=== PATIENT | male | born 1965 | race Caucasian/White ===

== ENCOUNTER → 2020-01-20 | Outpatient (CLI) | payer BC | END | disposition home or self-care (01) | LOC: VAS 10:43 | PROVIDERS: ATTEND Internal Medicine Cardiovascular Disease | DX: J98.8 Other specified respiratory disorders (principal); M47.819 Spondylosis without myelopathy or radiculopathy, site unspecified | CPT/HCPCS: 71046; 93971 ==

== ENCOUNTER 2020-01-25 12:25 | Day surgery (SDC) | payer BC ==
[2020-01-20 12:45] LABS: BASOPHILS % (AUTO) 0.6 % (0-1); EOSINOPHILS # (AUTO) 0.3 X10'3 (0-0.9); EOSINOPHILS % (AUTO) 3.9 % (0-6); HEMATOCRIT 43.4 % (42.0-52.0); HEMOGLOBIN 14.9 g/dl (14.0-17.9); LYMPHOCYTES # (AUTO) 1.4 X10'3 (1.1-4.8); LYMPHOCYTES % (AUTO) 18.8 % (21-51); MEAN CORPUSCULAR HEMOGLOBIN 28.6 PG (27.0-31.0); MEAN CORPUSCULAR HGB CONC 34.3 g/dL (33.0-36.5); MEAN CORPUSCULAR VOLUME 83.4 FL (78-98); MEAN PLATELET VOLUME 8.4 FL (7.4-10.4); MONOCYTES # (AUTO) 0.4 X10'3 (0-0.9); MONOCYTES % (AUTO) 4.9 % (2-12); NEUTROPHILS # (AUTO) 5.5 X10'3 (1.8-7.7); NEUTROPHILS % (AUTO) 71.8 % (42-75); PLATELET COUNT 266 X10'3 (140-440); RED CELL DISTRIBUTION WIDTH 13.9 % (11.5-14.5); WHITE BLOOD COUNT 7.7 X10'3 (4.5-11.0)
[2020-01-20 12:59] LABS: PARTIAL THROMBOPLASTIN TIME 27 SECONDS (22-32)
[2020-01-20 13:16] LABS: ALANINE AMINOTRANSFERASE 42 U/L (12-78); ALBUMIN 3.7 G/DL (3.4-5.0); ALKALINE PHOSPHATASE 64 IU/L (46-116); ANION GAP 9 (8-16); ASPARTATE AMINO TRANSFERASE 24 U/L (10-37); BILIRUBIN,TOTAL 0.5 MG/DL (0.1-1.0); BLOOD UREA NITROGEN 24 MG/DL (7-18); BUN/CREATININE RATIO 26.1 (5.4-32.0); CALCIUM 9.1 MG/DL (8.5-10.1); CHLORIDE 99 MMOL/L (99-107); CREATININE 0.92 MG/DL (0.60-1.10); GLUCOSE 128 MG/DL (70-104); POTASSIUM 3.8 MMOL/L (3.5-5.1); SODIUM 136 MMOL/L (135-145); TOTAL CARBON DIOXIDE 27.8 MMOL/L (24-32); TOTAL PROTEIN 7.4 G/DL (6.4-8.2); eGFR 86 ML/MIN
[2020-01-25] VITALS (12 sets, daily range): BP systolic 96–131; BP diastolic 74–94
[~2020-01-25] VITALS: Ht 175.3 cm; Wt 116.0 kg
[2020-01-25] MEDS ORDERED: nitroGLYCERIN 0.4mg SUBLingual tab SL PRN (13:00)
[2020-01-25] MEDS ORDERED: LOSA1TAB39 PO (13:01)
[2020-01-25] MEDS ORDERED: CARV-50 PO (13:01)
[2020-01-25] MEDS ORDERED: normal saline 1,000 ML IV SCH (13:05)
[2020-01-25] MEDS ORDERED: LORazepam 0.5 MG tablet PO PRN (13:05)
[2020-01-25] MEDS ORDERED: diphenhydrAMINE 25mg capsule PO PRN (13:05)
[2020-01-25] MEDS ORDERED: midazolam 2 mg/2 ml injection ONE ×2 (13:20→13:45)
[2020-01-25] MEDS ORDERED: fentaNYL/PF 50MCG/1 ML 2ML syringe ONE ×2 (13:20→14:01)
[2020-01-25] MEDS ORDERED: heparin 1,000 UNITS/NS 500ml 500 ML ONE ×2 (13:20→13:21)
[2020-01-25] MEDS ORDERED: iohexol 350MG/ML 100ml bottle IV ONE (13:20)
[2020-01-25] MEDS ORDERED: iohexol 350 MG/ML 50ML vial IV ONE (13:20)
[2020-01-25] MEDS ORDERED: LIDOcaine 1% (10mg/ml)w/preservative injection 20ml MDV ONE (13:21)
[2020-01-25] MEDS ORDERED: HYDROcodone/acetaminophen 10/325mg tab PO PRN (15:40)
[2020-01-25] MEDS ORDERED: HYDROcodone/acetaminophen 5mg/325mg tablet PO PRN (15:40)
== END 2020-01-25 19:58 | disposition home or self-care (01) ==
LOC: SSTAY O 12:25
PROVIDERS: ATTEND Internal Medicine Cardiovascular Disease
DX: I25.119 Atherosclerotic heart disease of native coronary artery with unspecified angina pectoris (principal); I10 Essential (primary) hypertension; E78.5 Hyperlipidemia, unspecified; G47.33 Obstructive sleep apnea (adult) (pediatric); Z79.899 Other long term (current) drug therapy; Z79.82 Long term (current) use of aspirin; Z79.01 Long term (current) use of anticoagulants
CPT/HCPCS: 36415; 80053; 85025; 85610; 85730; 93005; 93460; 99152; 99153; C1760; C1769; J1644; J2001; J2250; J3010; J7030; Q0163; Q9967; A4620; A6449; C1751

== ENCOUNTER 2020-02-15 07:39 | Inpatient (IN) | payer BC ==
[2020-02-15] VITALS (14 sets, daily range): BP systolic 111–159; BP diastolic 62–104
[~2020-02-15] VITALS: Ht 175.3 cm; Wt 113.6 kg
[~2020-02-15 07:39] MED LIST: CARV-50 PO; LOSA1TAB39 PO
[2020-02-15] MEDS ORDERED: NITR0.4T51 SL (07:58)
[2020-02-15] MEDS ORDERED: ASPI-611 PO (07:58)
[2020-02-15] MEDS ORDERED: CLOP75TA15 PO (07:58)
[2020-02-15] MEDS ORDERED: heparin 10,000 units/1 ML INJ ONE (08:00)
[2020-02-15] MEDS ORDERED: papaverine 30 mg/ml 2ml inj. ONE (08:00)
[2020-02-15] MEDS ORDERED: LIDOcaine 1% (10mg/ml)w/preservative injection 20ml MDV ONE (08:53)
[2020-02-15] MEDS ORDERED: proCHLORperazine 10 MG/2 ml inj ONE (08:53)
[2020-02-15] MEDS ORDERED: iohexol 350 MG/ML 50ML vial IV ONE (08:53)
[2020-02-15] MEDS ORDERED: midazolam 2 mg/2 ml injection ONE ×2 (08:53→09:33)
[2020-02-15] MEDS ORDERED: heparin 1,000unit/ml 10ml vial 10 ML ONE (08:53)
[2020-02-15] MEDS ORDERED: iohexol 350 MG/1 ML 200ml bottle ONE (08:53)
[2020-02-15] MEDS ORDERED: fentaNYL/PF 50MCG/1 ML 2ML syringe ONE ×2 (08:53→09:33)
[2020-02-15] MEDS ORDERED: nitroGLYCERIN 0.4mg SUBLingual tab SL PRN ×2 (08:55→11:05)
[2020-02-15] MEDS ORDERED: LORazepam 0.5 MG tablet PO PRN (08:55)
[2020-02-15] MEDS ORDERED: diphenhydrAMINE 25mg capsule PO PRN (08:55)
[2020-02-15] MEDS: normal saline 1,000 ML IV SCH ×2 (08:58→20:07)
[2020-02-15] MEDS ORDERED: ondansetron/PF 4mg/2ml inj IV PRN (11:05)
[2020-02-15] MEDS ORDERED: HYDROcodone/acetaminophen 5mg/325mg tablet PO PRN (11:05)
[2020-02-15] MEDS ORDERED: OXAZEpam 15mg capsule PO PRN (11:05)
[2020-02-15] MEDS ORDERED: HYDROcodone/acetaminophen 10/325mg tab PO PRN (11:05)
[2020-02-15] MEDS ORDERED: MESSAGE TO NURSING PO ONE ×2 (12:05)
[2020-02-15] MEDS ORDERED: magnesium 4gm in 100ml NS 100 ML IV PRN (12:05)
[2020-02-15] MEDS ORDERED: magnesium 2GM in 50ml NS 50 ML IV PRN (12:05)
--- NOTE | 2020-02-15 16:10 | NUR ---
Problems reprioritized. Patient report given, questions answered & plan of care reviewed with Allison RN, will be bringing pt to room #307.
--- NOTE | 2020-02-15 17:05 | NUR ---
RECEIVED REPORT AND PATIENT FROM SHORT STAY.AWAKE ALERT AND ORIENTED X4 . HOB FLAT, RIGHT GROIN DRESSING CLEAN DRY AND INTACT.PEDAL PULSES POSITIVE PER PALPATION. CALL LIGHT IN REACH. NO C/O AT THIS TIME. Addendum: 02/15/20 at 1708 by Victorina Hurd RN Amended: Links added.
[2020-02-15 17:59] LABS: PARTIAL THROMBOPLASTIN TIME 25 SECONDS (22-32)
--- NOTE | 2020-02-15 18:45 | NUR ---
Patient in room MED 307. I have received report from Allison-RN, and had the opportunity to ask questions and assume patient care.
[2020-02-15] MEDS: carVEDilol 12.5mg tablet PO SCH (20:06)
[2020-02-16 01:30] VITALS: BP 107/72
[2020-02-16] MEDS: normal saline 1,000 ML IV SCH ×3 (04:55→15:51)
[2020-02-16 06:00] VITALS: BP 120/86
--- NOTE | 2020-02-16 06:20 | NUR ---
Problems reprioritized. Patient report given OmidRN, questions answered & plan of care reviewed with .
--- NOTE | 2020-02-16 06:35 | NUR ---
Patient in room MED 307. I have received report from BRENDA Cardona and had the opportunity to ask questions and assume patient care.
[2020-02-16 07:43] LABS: BASOPHILS # (AUTO) 0.1 X10'3 (0-0.2); BASOPHILS % (AUTO) 0.8 % (0-1); EOSINOPHILS # (AUTO) 0.5 X10'3 (0-0.9); EOSINOPHILS % (AUTO) 6.9 % (0-6); HEMATOCRIT 37.6 % (42.0-52.0); HEMOGLOBIN 12.9 g/dl (14.0-17.9); LYMPHOCYTES # (AUTO) 1.3 X10'3 (1.1-4.8); LYMPHOCYTES % (AUTO) 17.3 % (21-51); MEAN CORPUSCULAR HEMOGLOBIN 28.9 PG (27.0-31.0); MEAN CORPUSCULAR HGB CONC 34.2 g/dL (33.0-36.5); MEAN CORPUSCULAR VOLUME 84.5 FL (78-98); MEAN PLATELET VOLUME 7.7 FL (7.4-10.4); MONOCYTES # (AUTO) 0.8 X10'3 (0-0.9); MONOCYTES % (AUTO) 10.1 % (2-12); NEUTROPHILS # (AUTO) 4.9 X10'3 (1.8-7.7); NEUTROPHILS % (AUTO) 64.9 % (42-75); PLATELET COUNT 213 X10'3 (140-440); RED BLOOD COUNT 4.45 X10'6 (4.70-6.10); RED CELL DISTRIBUTION WIDTH 14.1 % (11.5-14.5); WHITE BLOOD COUNT 7.6 X10'3 (4.5-11.0)
[2020-02-16] MEDS: aspirin 81mg tablet.DR PO SCH (07:52)
[2020-02-16] MEDS: carVEDilol 12.5mg tablet PO SCH ×2 (07:53→20:27)
[2020-02-16] MEDS: HYDROchlorothiazide 25mg tablet PO SCH (07:53)
[2020-02-16 07:56] LABS: ANION GAP 4 (8-16); BLOOD UREA NITROGEN 14 MG/DL (7-18); BUN/CREATININE RATIO 15.9 (5.4-32.0); CALCIUM 8.4 MG/DL (8.5-10.1); CHLORIDE 105 MMOL/L (99-107); CREATININE 0.88 MG/DL (0.60-1.10); GLUCOSE 137 MG/DL (70-104); POTASSIUM 4.1 MMOL/L (3.5-5.1); SODIUM 138 MMOL/L (135-145); TOTAL CARBON DIOXIDE 28.9 MMOL/L (24-32); eGFR 90 ML/MIN
[2020-02-16] MEDS ORDERED: enoxaparin 40mg/0.4ml syringe SQ SCH (08:00)
[2020-02-16] MEDS: losartan 50mg tablet PO SCH (08:44)
[2020-02-16] MEDS ORDERED: cefazolin/dext.iso 2gm/50ml 50 ML IV ONE (09:20)
[2020-02-16] MEDS ORDERED: vancomycin/NS 1 GM ADD-VANTAGE 250 ML IV ONE (09:20)
[2020-02-16] MEDS ORDERED: MESSAGE TO NURSING PO ONE ×2 (10:00→20:00)
[2020-02-16 11:00] VITALS: BP 118/82
[2020-02-16] MEDS ORDERED: famotidine 20mg tablet PO ONE (11:40)
[2020-02-16] MEDS ORDERED: LORazepam 2 mg/ml vial IV PRN (11:40)
[2020-02-16 13:50] LABS: ABG BASE EXCESS -1.8 mmol/L (-2.0-2.0); ABG HCO3 21.8 mmol/L (22.0-26.0); ABG OXYGEN SATURATION 95.9 % (94-97); ABG PCO2 (T) 33.9 mmHg (35.0-48.0); ABG PO2 (T) 75.9 mmHg (75.0-100.0); ALLEN'S TEST POSITIVE; FCOHb 0.5 % (0.0-3.9); FMetHb 0.1 % (0.0-1.5); FO2Hb 95.3 % (94-97)
--- NOTE | 2020-02-16 14:17 | NUR ---
DM consult, A1c 7.3, spoke with nurse in unit and this is a new diagnosis however the physician has not spoken with patient yet regarding this. Once received diagnosis from physician then pt will need written DM education handout with verbal review. Pending CABG tomorrow morning. Will also need written post cardiac surgery education handout with verbal review with emphasis of increased protein needs r/t surgical wound heal. Addendum: 02/16/20 at [address] Amended: Links added.
[2020-02-16 15:00] VITALS: BP 108/80
[2020-02-16] MEDS ORDERED: FLU VACC QS2020-21(6MOS UP)/PF 60 MCG/0.5 ML SYRINGE IMVAC ONE (18:05)
--- NOTE | 2020-02-16 18:15 | NUR ---
Problems reprioritized. Patient report given, questions answered & plan of care reviewed with BRENDA Cardona.
[2020-02-16 20:27] VITALS: BP 135/91
[2020-02-16] MEDS: mupirocin 2% nasal ointment 1gm UD NS SCH (20:27)
--- NOTE | 2020-02-16 22:00 | NUR ---
The patient's 2200 vitals skipped upon the patient's request. Wants to get sleep before the big day tomorrow. Will check his vitals after the prep of CABG. patient is resting well. No chest pain, no shortness of breath.
[2020-02-17] VITALS (19 sets, daily range): BP systolic 100–161; BP diastolic 55–117
[2020-02-17] MEDS: normal saline 1,000 ML IV SCH ×2 (02:39→20:03)
--- NOTE | 2020-02-17 03:01 | NUR ---
Called DR. Nj regarding the patient's O2 Sat being unstable in 2L O2 NC to 50's, 60's. Patient was put on 4L O2 NC and the O2 sat still in 70's. The non-rebreather applied to the patient the O2 sat is at 98. Dr. Nj acknowledge the issue. No orders were given at this time. Addendum: 02/17/20 at 0313 by Dulce Mahmood RN The note is not for this patient it is for another patient.
[2020-02-17 03:32] LABS: BASOPHILS # (AUTO) 0.1 X10'3 (0-0.2); BASOPHILS % (AUTO) 0.8 % (0-1); EOSINOPHILS # (AUTO) 0.6 X10'3 (0-0.9); EOSINOPHILS % (AUTO) 7.9 % (0-6); HEMATOCRIT 41.1 % (42.0-52.0); HEMOGLOBIN 13.7 g/dl (14.0-17.9); LYMPHOCYTES # (AUTO) 1.7 X10'3 (1.1-4.8); LYMPHOCYTES % (AUTO) 22.4 % (21-51); MEAN CORPUSCULAR HGB CONC 33.4 g/dL (33.0-36.5); MEAN CORPUSCULAR VOLUME 83.7 FL (78-98); MEAN PLATELET VOLUME 7.6 FL (7.4-10.4); MONOCYTES # (AUTO) 0.8 X10'3 (0-0.9); MONOCYTES % (AUTO) 10.5 % (2-12); NEUTROPHILS # (AUTO) 4.3 X10'3 (1.8-7.7); NEUTROPHILS % (AUTO) 58.4 % (42-75); PLATELET COUNT 271 X10'3 (140-440); RED BLOOD COUNT 4.91 X10'6 (4.70-6.10); RED CELL DISTRIBUTION WIDTH 14.3 % (11.5-14.5); WHITE BLOOD COUNT 7.4 X10'3 (4.5-11.0)
[2020-02-17 03:38] LABS: ALBUMIN 3.5 G/DL (3.4-5.0); ANION GAP 7 (8-16); BLOOD UREA NITROGEN 15 MG/DL (7-18); CALCIUM 9.1 MG/DL (8.5-10.1); CHLORIDE 103 MMOL/L (99-107); CREATININE 0.94 MG/DL (0.60-1.10); GLUCOSE 126 MG/DL (70-104); POTASSIUM 3.8 MMOL/L (3.5-5.1); SODIUM 135 MMOL/L (135-145); TOTAL CARBON DIOXIDE 25.3 MMOL/L (24-32); eGFR 84 ML/MIN
[2020-02-17] MEDS ORDERED: MESSAGE TO NURSING PO ONE ×2 (04:00→05:30)
[2020-02-17] MEDS ORDERED: famotidine 20mg tablet PO ONE (05:00)
[2020-02-17] MEDS ORDERED: Insulin Reg/NS 100units/100mL 100 ML IV SCH ×2 (05:00→09:30)
[2020-02-17] MEDS ORDERED: cefazolin/dext.iso 2gm/50ml 50 ML IV ONE (05:00)
[2020-02-17] MEDS: mupirocin 2% nasal ointment 1gm UD NS SCH ×2 (05:05→20:00)
[2020-02-17] MEDS ORDERED: ceFAZolin 1000mg inj ONE ×2 (05:33→05:38)
[2020-02-17] MEDS ORDERED: epiNEPHrine 1 mg/ml inj ONE (05:38)
[2020-02-17] MEDS ORDERED: LORazepam 2 mg/ml vial ONE (05:39)
[2020-02-17] MEDS ORDERED: gabapentin 400mg capsule PO ONE (06:00)
[2020-02-17] MEDS ORDERED: MALTODEXTRIN/FRUCTOSE 0.68 KCAL/ML LIQUID 296ML BOTTLE PO ONE (06:00)
--- NOTE | 2020-02-17 06:14 | NUR ---
Problems reprioritized. Patient report given to OmidRN, questions answered & plan of care reviewed with .
--- NOTE | 2020-02-17 06:55 | NUR ---
Patient in room MED 307. I have received report from BRENDA Cardona and had the opportunity to ask questions and assume patient care.
--- NOTE | 2020-02-17 07:04 | NUR ---
pt. wheeled to OR at 0705.
[2020-02-17] MEDS ORDERED: SUFENTANIL CITRATE 50 MCG/ML 2ml ampule IV ONE (07:14)
[2020-02-17] MEDS ORDERED: rocuronium 10mg/ml inj IV ONE (07:33)
[2020-02-17] MEDS ORDERED: LIDOcaine 2% (20mg/ml) 5ml vial ONE (07:33)
[2020-02-17] MEDS ORDERED: propofol inj 20 ML IV ONE (07:33)
[2020-02-17] MEDS: aspirin 81mg tablet.DR PO SCH (08:00)
[2020-02-17] MEDS: losartan 50mg tablet PO SCH (08:00)
[2020-02-17] MEDS: carVEDilol 12.5mg tablet PO SCH ×2 (08:00→20:00)
[2020-02-17] MEDS: HYDROchlorothiazide 25mg tablet PO SCH (08:00)
[2020-02-17] MEDS ORDERED: heparin 10,000 units/1 ML INJ ONE (08:00)
[2020-02-17 08:10] LABS: ABG BASE EXCESS 0.2 mmol/L (-2.0-2.0); ABG HCO3 25.3 mmol/L (22.0-26.0); ABG PCO2 42.4 mmHg (35.0-48.0); CL (ABG) 104 mmol/L (98-110); GLUCOSE (ABG) 197 mg/dl (70-140); K (ABG) 4.1 mmol/L (3.5-5.0)
[2020-02-17] MEDS ORDERED: papaverine 30 mg/ml 2ml inj. IA ONE (08:26)
[2020-02-17] MEDS ORDERED: albumin (Human) 5% 250ml 250 ML IV ONE ×2 (08:43)
[2020-02-17 08:46] LABS: ABG BASE EXCESS -1.6 mmol/L (-2.0-2.0); ABG HCO3 22.6 mmol/L (22.0-26.0); ABG PCO2 36.6 mmHg (35.0-48.0); ABG PO2 95.3 mmHg (75.0-100.0); CL (ABG) 106 mmol/L (98-110); GLUCOSE (ABG) 169 mg/dl (70-140); IONIZED CA (ABG) 1.13 mmol/L (1.10-1.43); K (ABG) 4.1 mmol/L (3.5-5.0)
[2020-02-17 09:10] LABS: ABG BASE EXCESS -2.3 mmol/L (-2.0-2.0); ABG HCO3 21.1 mmol/L (22.0-26.0); ABG PCO2 32.6 mmHg (35.0-48.0); ABG PO2 74.7 mmHg (75.0-100.0); CL (ABG) 108 mmol/L (98-110); GLUCOSE (ABG) 154 mg/dl (70-140); IONIZED CA (ABG) 1.11 mmol/L (1.10-1.43); K (ABG) 3.7 mmol/L (3.5-5.0)
[2020-02-17] MEDS ORDERED: mineral oil 133ml enema RC PRN (09:30)
[2020-02-17] MEDS ORDERED: bisacodyl 10mg suppository rectal RC PRN (09:30)
[2020-02-17] MEDS ORDERED: sodium phosphate inj. 15 MMOL in dextrose 5%-water 250 ML IV PRN (09:30)
[2020-02-17] MEDS ORDERED: dextrose 50%-water 50ml dispensing syringe IV PRN (09:30)
[2020-02-17] MEDS ORDERED: magnesium 2GM in 50ml NS 50 ML IV PRN (09:30)
[2020-02-17] MEDS ORDERED: Neutra Phos packet PO PRN (09:30)
[2020-02-17] MEDS ORDERED: metoclopramide 5 mg/ml inj IV PRN (09:30)
[2020-02-17] MEDS ORDERED: potassium Cl 20mEq/100mL bag 100 ML IV PRN (09:30)
[2020-02-17] MEDS ORDERED: magnesium citrate 296ml oral solution PO PRN (09:30)
[2020-02-17] MEDS ORDERED: sodium phosphate inj. 30 MMOL in dextrose 5%-water 250 ML IV PRN (09:30)
[2020-02-17] MEDS ORDERED: morphine 4 MG/ML inj SYRINge IV PRN (09:30)
[2020-02-17] MEDS ORDERED: ondansetron/PF 4mg/2ml inj IV PRN (09:30)
[2020-02-17] MEDS ORDERED: albumin (Human) 5% 250ml 250 ML IV PRN (09:30)
[2020-02-17] MEDS ORDERED: magnesium 4gm in 100ml NS 100 ML IV PRN (09:30)
[2020-02-17] MEDS ORDERED: acetaminophen 325mg tablet PO PRN ×2 (09:30)
[2020-02-17] MEDS ORDERED: niCARDipine-NS 40mg/200ml IVPB 200 ML IV PRN (09:30)
[2020-02-17] MEDS ORDERED: potassium Cl 20 mEq SR tablet PO PRN (09:30)
[2020-02-17] MEDS ORDERED: magnesium hydroxide 30ml (MOM) UD suspension PO PRN (09:30)
[2020-02-17] MEDS ORDERED: pantoprazole 40 MG vial IV ONE (09:30)
[2020-02-17] MEDS ORDERED: nitroGLYCERIN-Tridil 50MG/D5W 250 ML IV SCH (09:30)
--- NOTE | 2020-02-17 09:30 | NUR ---
Received to room , accompanied by MDs and surgical crew. Placed on ventilator, to cardiac/vascular sonographer, arterial line and PA line pressure monitored. Chest tubes to suction at 20 cm. Verde cath to gravity drainage. Dressings are dry and intact. See assessment record. All vasoactive drugs are infusing via central line.
[2020-02-17] MEDS ORDERED: morphine 4 MG/ML inj SYRINge ONE (09:40)
[2020-02-17 10:00] LABS: BASOPHILS % (AUTO) 0.4 % (0-1); EOSINOPHILS # (AUTO) 0.4 X10'3 (0-0.9); EOSINOPHILS % (AUTO) 5.1 % (0-6); HEMATOCRIT 33.7 % (42.0-52.0); HEMOGLOBIN 11.4 g/dl (14.0-17.9); LYMPHOCYTES # (AUTO) 1.6 X10'3 (1.1-4.8); MEAN CORPUSCULAR HEMOGLOBIN 28.5 PG (27.0-31.0); MEAN CORPUSCULAR VOLUME 83.8 FL (78-98); MEAN PLATELET VOLUME 7.3 FL (7.4-10.4); MONOCYTES # (AUTO) 0.3 X10'3 (0-0.9); MONOCYTES % (AUTO) 3.7 % (2-12); NEUTROPHILS # (AUTO) 5.9 X10'3 (1.8-7.7); NEUTROPHILS % (AUTO) 71.8 % (42-75); PLATELET COUNT 222 X10'3 (140-440); RED BLOOD COUNT 4.02 X10'6 (4.70-6.10); RED CELL DISTRIBUTION WIDTH 14.1 % (11.5-14.5); WHITE BLOOD COUNT 8.2 X10'3 (4.5-11.0)
[2020-02-17 10:14] LABS: PARTIAL THROMBOPLASTIN TIME 23 SECONDS (22-32)
[2020-02-17 10:15] LABS: ABG BASE EXCESS -3.7 mmol/L (-2.0-2.0); ABG HCO3 22.4 mmol/L (22.0-26.0); ABG OXYGEN SATURATION 97.8 % (94-97); ABG PCO2 (T) 43.2 mmHg (35.0-48.0); ABG PO2 (T) 115.8 mmHg (75.0-100.0); FCOHb 0.3 % (0.0-3.9); FMetHb 0.1 % (0.0-1.5); FO2Hb 97.4 % (94-97); PATIENT TEMPERATURE 36.4; PEEP 5 cm H2O; RESPIRATORY RATE 12 b/min; TIDAL VOLUME 700 mL
[2020-02-17 10:15] LABS: ALANINE AMINOTRANSFERASE 25 U/L (12-78); ALBUMIN 3.1 G/DL (3.4-5.0); ALBUMIN/GLOBULIN RATIO 1.1 (1.1-1.5); ALKALINE PHOSPHATASE 64 IU/L (46-116); ANION GAP 9 (8-16); ASPARTATE AMINO TRANSFERASE 11 U/L (10-37); BILIRUBIN,TOTAL 0.4 MG/DL (0.1-1.0); BLOOD UREA NITROGEN 13 MG/DL (7-18); BUN/CREATININE RATIO 15.9 (5.4-32.0); CALCIUM 7.8 MG/DL (8.5-10.1); CHLORIDE 107 MMOL/L (99-107); CREATININE 0.82 MG/DL (0.60-1.10); GLUCOSE 139 MG/DL (70-104); MAGNESIUM 1.9 MG/DL (1.5-2.4); PHOSPHORUS 2.8 MG/DL (2.3-4.5); POTASSIUM 3.7 MMOL/L (3.5-5.1); SODIUM 140 MMOL/L (135-145); TOTAL CARBON DIOXIDE 24.2 MMOL/L (24-32); TOTAL PROTEIN 5.8 G/DL (6.4-8.2); eGFR > 90 ML/MIN
[2020-02-17] MEDS: morphine 4 MG/ML inj SYRINge IV PRN ×2 (10:38→16:34)
[2020-02-17] MEDS: potassium Cl 20mEq/100mL bag 100 ML IV PRN ×3 (10:41→12:58)
[2020-02-17] MEDS: dexmedetomidin/NS 400mcg/100ml 100 ML IV SCH ×2 (10:47→18:45)
[2020-02-17] MEDS: sodium chloride 0.45% 1,000 ML IV SCH (11:15)
[2020-02-17] MEDS: gabapentin 300mg capsule PO SCH ×2 (12:06→20:33)
[2020-02-17 14:31] LABS: TOTAL HEMOGLOBIN 12.3 G/dl (14.0-18.0)
--- NOTE | 2020-02-17 14:40 | NUR ---
Notified Dr. Trevino about pH 7.19 and pCO2 56.7 on spontaneous with pressure support of 10. Per Dr. Trevino, hold off on extubation, keep on spont, and okay to increase pressure support to 15.
[2020-02-17] MEDS: ceFAZolin/D5W- 1GM premix 50 ML IV SCH (15:39)
[2020-02-17 15:43] LABS: BASOPHILS % (AUTO) 0.3 % (0-1); EOSINOPHILS % (AUTO) 0.4 % (0-6); HEMATOCRIT 32.8 % (42.0-52.0); HEMOGLOBIN 11.1 g/dl (14.0-17.9); LYMPHOCYTES # (AUTO) 0.7 X10'3 (1.1-4.8); LYMPHOCYTES % (AUTO) 5.7 % (21-51); MEAN CORPUSCULAR HEMOGLOBIN 28.7 PG (27.0-31.0); MEAN CORPUSCULAR HGB CONC 33.9 g/dL (33.0-36.5); MEAN CORPUSCULAR VOLUME 84.7 FL (78-98); MEAN PLATELET VOLUME 7.5 FL (7.4-10.4); MONOCYTES # (AUTO) 0.8 X10'3 (0-0.9); MONOCYTES % (AUTO) 6.5 % (2-12); NEUTROPHILS # (AUTO) 10.7 X10'3 (1.8-7.7); NEUTROPHILS % (AUTO) 87.1 % (42-75); PLATELET COUNT 218 X10'3 (140-440); RED BLOOD COUNT 3.88 X10'6 (4.70-6.10); RED CELL DISTRIBUTION WIDTH 13.9 % (11.5-14.5); WHITE BLOOD COUNT 12.3 X10'3 (4.5-11.0)
[2020-02-17 15:52] LABS: ALBUMIN 3.4 G/DL (3.4-5.0); ANION GAP 8 (8-16); BLOOD UREA NITROGEN 14 MG/DL (7-18); BUN/CREATININE RATIO 17.9 (5.4-32.0); CALCIUM 7.9 MG/DL (8.5-10.1); CHLORIDE 107 MMOL/L (99-107); CREATININE 0.78 MG/DL (0.60-1.10); GLUCOSE 133 MG/DL (70-104); MAGNESIUM 2.9 MG/DL (1.5-2.4); PHOSPHORUS 3.4 MG/DL (2.3-4.5); SODIUM 138 MMOL/L (135-145); TOTAL CARBON DIOXIDE 23.3 MMOL/L (24-32); eGFR > 90 ML/MIN
[2020-02-17 15:54] LABS: POTASSIUM 5.5 MMOL/L (3.5-5.1)
[2020-02-17 16:00] LABS: ABG BASE EXCESS -4.7 mmol/L (-2.0-2.0); ABG HCO3 21.3 mmol/L (22.0-26.0); ABG OXYGEN SATURATION 96.9 % (94-97); ABG PCO2 (T) 42.4 mmHg (35.0-48.0); ABG PO2 (T) 92.4 mmHg (75.0-100.0); FCOHb 0.1 % (0.0-3.9); FO2Hb 96.8 % (94-97); PATIENT TEMPERATURE 36.6; PEEP 5 cm H2O; TOTAL HEMOGLOBIN 11.6 G/dl (14.0-18.0)
[2020-02-17] MEDS ORDERED: ceFAZolin 1GM/D5W- ADD-VANTAGE 50 ML IV SCH (16:00)
[2020-02-17] MEDS ORDERED: racepinephrine 11.25mg/0.5ml nebule IH PRN (16:25)
[2020-02-17] MEDS ORDERED: racepinephrine 11.25mg/0.5ml nebule ONE (16:26)
[2020-02-17] MEDS ORDERED: dexamethasone sod phosphate 10mg/ml inj IV STA (16:56)
[2020-02-17] MEDS ORDERED: ipratropium/albuterol 3ml nebule NEB PRN ×2 (17:00→18:35)
[2020-02-17] MEDS ORDERED: ketorolac trometh. 30mg/ml inj. IM ONE (17:00)
--- NOTE | 2020-02-17 17:00 | NUR ---
Patient extubated around [address] Trevino at the bedside. Upon extubation, patient with stridor. Racemic Epinephrine given with some improvement. Unable to get a hold of Dr. Trevino but [facility] called with orders for Decadron and Toradol for pain not relieved by Morphine. Patient's breathing and pain improved after interventions. Will continue to monitor.
--- NOTE | 2020-02-17 18:20 | NUR ---
Problems reprioritized. Patient report given, questions answered & plan of care reviewed with Mac RN.
--- NOTE | 2020-02-17 18:24 | NUR ---
Spoke with Dr. Trevino about patient's Stridor. Patient appears to be improving but shows signs of sleep apnea. Okay per MD for BiPap PRN as well as DuoNebs PRN. MD aware of patient's increased pain and is okay with Toradol q6h for 24h.
--- NOTE | 2020-02-17 19:43 | NUR ---
RN Note -Family Communication Called pt's . Updated her on pt's progress.
[2020-02-17] MEDS: sennosides/docusate sodium tablet PO SCH (20:00)
[2020-02-17] MEDS: vancomycin/NS 1 GM ADD-VANTAGE 250 ML IV SCH (20:00)
[2020-02-17] MEDS: ketorolac trometh. 30mg/ml inj. IV SCH (20:00)
[2020-02-17] MEDS ORDERED: dexmedetomidine/D5W 100mL 100 ML IV SCH (20:20)
[2020-02-17] MEDS: atorvastatin 10mg tablet PO SCH (20:32)
[2020-02-17] MEDS: HYDROcodone/acetaminophen 10/325mg tab PO PRN (20:32)
[2020-02-18] VITALS (18 sets, daily range): BP systolic 94–123; BP diastolic 54–78
[2020-02-18] MEDS: HYDROcodone/acetaminophen 10/325mg tab PO PRN ×4 (00:27→23:13)
[2020-02-18] MEDS: ceFAZolin/D5W- 1GM premix 50 ML IV SCH ×4 (00:27→23:15)
[2020-02-18] MEDS: ketorolac trometh. 30mg/ml inj. IV SCH ×3 (02:45→13:40)
[2020-02-18 03:31] LABS: BASOPHILS % (AUTO) 0.1 % (0-1); EOSINOPHILS % (AUTO) 0 % (0-6); HEMOGLOBIN 10.5 g/dl (14.0-17.9); LYMPHOCYTES # (AUTO) 0.7 X10'3 (1.1-4.8); MEAN CORPUSCULAR HEMOGLOBIN 28.1 PG (27.0-31.0); MEAN CORPUSCULAR HGB CONC 33.9 g/dL (33.0-36.5); MEAN CORPUSCULAR VOLUME 82.8 FL (78-98); MEAN PLATELET VOLUME 7.6 FL (7.4-10.4); MONOCYTES # (AUTO) 0.9 X10'3 (0-0.9); MONOCYTES % (AUTO) 7.5 % (2-12); NEUTROPHILS # (AUTO) 10.7 X10'3 (1.8-7.7); NEUTROPHILS % (AUTO) 86.4 % (42-75); PLATELET COUNT 210 X10'3 (140-440); RED BLOOD COUNT 3.74 X10'6 (4.70-6.10); RED CELL DISTRIBUTION WIDTH 14.1 % (11.5-14.5); WHITE BLOOD COUNT 12.4 X10'3 (4.5-11.0)
[2020-02-18 03:47] LABS: ALANINE AMINOTRANSFERASE 25 U/L (12-78); ALBUMIN 3.1 G/DL (3.4-5.0); ALBUMIN/GLOBULIN RATIO 1.1 (1.1-1.5); ALKALINE PHOSPHATASE 57 IU/L (46-116); ANION GAP 8 (8-16); ASPARTATE AMINO TRANSFERASE 25 U/L (10-37); BILIRUBIN,TOTAL 0.4 MG/DL (0.1-1.0); BLOOD UREA NITROGEN 14 MG/DL (7-18); BUN/CREATININE RATIO 18.2 (5.4-32.0); CALCIUM 8.4 MG/DL (8.5-10.1); CHLORIDE 105 MMOL/L (99-107); CREATININE 0.77 MG/DL (0.60-1.10); GLUCOSE 146 MG/DL (70-104); MAGNESIUM 2.4 MG/DL (1.5-2.4); PHOSPHORUS 3.1 MG/DL (2.3-4.5); SODIUM 137 MMOL/L (135-145); eGFR > 90 ML/MIN
[2020-02-18 03:49] LABS: POTASSIUM 4.3 MMOL/L (3.5-5.1)
--- NOTE | 2020-02-18 04:30 | NUR ---
RN Note -Stood pt at side of bed. Tolerated well.
--- NOTE | 2020-02-18 06:58 | NUR ---
Patient in room ICU 2039. I have received report from Mac RN and had the opportunity to ask questions and assume patient care.
[2020-02-18] MEDS: mupirocin 2% nasal ointment 1gm UD NS SCH ×2 (07:46→20:25)
[2020-02-18] MEDS: carVEDilol 12.5mg tablet PO SCH (07:47)
[2020-02-18] MEDS: aspirin 325mg tablet, delayed-release (Ecotrin) PO SCH (07:47)
[2020-02-18] MEDS: losartan 50mg tablet PO SCH (07:47)
[2020-02-18] MEDS: gabapentin 300mg capsule PO SCH ×3 (07:47→20:26)
[2020-02-18] MEDS: HYDROchlorothiazide 25mg tablet PO SCH (07:47)
[2020-02-18] MEDS: potassium Cl 20 mEq SR tablet PO PRN (07:48)
[2020-02-18] MEDS: sennosides/docusate sodium tablet PO SCH ×2 (07:48→20:25)
[2020-02-18] MEDS: normal saline 1,000 ML IV SCH (07:49)
[2020-02-18] MEDS ORDERED: dextrose 50%-water 50ml dispensing syringe IV PRN ×2 (08:25)
[2020-02-18] MEDS ORDERED: dextrose ORAL solution 15 GM/59 ML bottle PO PRN ×2 (08:25)
[2020-02-18] MEDS ORDERED: glucagon, human recombinant 1mg kit SUBCUT PRN (08:25)
[2020-02-18] MEDS ORDERED: MESSAGE TO PHARMACY PO ONE (08:25)
[2020-02-18] MEDS: insulin glargine (Lantus) pen - multi-dose SQ PRN ×2 (08:36→21:57)
[2020-02-18] MEDS: vancomycin/NS 1 GM ADD-VANTAGE 250 ML IV SCH ×2 (09:03→20:25)
[2020-02-18] MEDS: insulin Lispro (HumaLOG) vial - multi-dose SQ SCH ×2 (13:40→19:12)
--- NOTE | 2020-02-18 14:00 | NUR ---
Patient in room MED 307. I have received report from BRENDA Reinoso and had the opportunity to ask questions and assume patient care.
--- NOTE | 2020-02-18 14:40 | NUR ---
Problems reprioritized. Patient report given, questions answered & plan of care reviewed with Kaylan GUTIERREZ. Pt transferred to [facility] 307, all belongings w/ pt at time of transfer, transferrred via wheelchair w/ hospital staff.
[2020-02-18] MEDS: heparin, porcine 5000 units/ml vial SQ SCH ×2 (16:59→23:14)
--- NOTE | 2020-02-18 18:22 | NUR ---
Patient in room MED 307. I have received report from Kaylan GUTIERREZ and had the opportunity to ask questions and assume patient care.
--- NOTE | 2020-02-18 19:12 | NUR ---
Problems reprioritized. Patient report given, questions answered & plan of care reviewed with BRENDA Mccray.
[2020-02-18] MEDS: lactobacillus rhamnosus 10,000 MMU CELLS/CAPSULE PO SCH (20:26)
[2020-02-18] MEDS: carvedilol 6.25mg tablet PO SCH ×2 (20:26→20:36)
[2020-02-18] MEDS: atorvastatin 10mg tablet PO SCH (20:26)
[2020-02-18] MEDS ORDERED: insulin glargine (Lantus) pen - multi-dose SQ SCH (21:00)
[2020-02-19] VITALS (9 sets, daily range): BP systolic 102–128; BP diastolic 63–82
[2020-02-19] MEDS: HYDROcodone/acetaminophen 10/325mg tab PO PRN ×4 (04:18→21:37)
--- NOTE | 2020-02-19 06:00 | NUR ---
Problems reprioritized. Patient report given, questions answered & plan of care reviewed with Alejandra GUTIERREZ.
[2020-02-19 06:08] LABS: BASOPHILS # (AUTO) 0.1 X10'3 (0-0.2); BASOPHILS % (AUTO) 0.5 % (0-1); EOSINOPHILS # (AUTO) 0.3 X10'3 (0-0.9); EOSINOPHILS % (AUTO) 2.6 % (0-6); HEMATOCRIT 30.4 % (42.0-52.0); HEMOGLOBIN 10.4 g/dl (14.0-17.9); LYMPHOCYTES # (AUTO) 1.5 X10'3 (1.1-4.8); LYMPHOCYTES % (AUTO) 13.9 % (21-51); MEAN CORPUSCULAR HEMOGLOBIN 28.6 PG (27.0-31.0); MEAN CORPUSCULAR HGB CONC 34.1 g/dL (33.0-36.5); MEAN CORPUSCULAR VOLUME 83.9 FL (78-98); MEAN PLATELET VOLUME 7.9 FL (7.4-10.4); MONOCYTES # (AUTO) 1.4 X10'3 (0-0.9); MONOCYTES % (AUTO) 12.3 % (2-12); NEUTROPHILS # (AUTO) 7.9 X10'3 (1.8-7.7); NEUTROPHILS % (AUTO) 70.7 % (42-75); PLATELET COUNT 210 X10'3 (140-440); RED BLOOD COUNT 3.62 X10'6 (4.70-6.10); RED CELL DISTRIBUTION WIDTH 14.4 % (11.5-14.5); WHITE BLOOD COUNT 11.2 X10'3 (4.5-11.0)
--- NOTE | 2020-02-19 06:15 | NUR ---
Patient in room MED 307. I have received report from gerardo paris and had the opportunity to ask questions and assume patient care.
[2020-02-19 06:38] LABS: ALBUMIN 2.9 G/DL (3.4-5.0); ANION GAP 7 (8-16); BLOOD UREA NITROGEN 20 MG/DL (7-18); BUN/CREATININE RATIO 21.1 (5.4-32.0); CALCIUM 8.1 MG/DL (8.5-10.1); CHLORIDE 105 MMOL/L (99-107); CREATININE 0.95 MG/DL (0.60-1.10); GLUCOSE 122 MG/DL (70-104); PHOSPHORUS 2.8 MG/DL (2.3-4.5); POTASSIUM 4.1 MMOL/L (3.5-5.1); SODIUM 138 MMOL/L (135-145); TOTAL CARBON DIOXIDE 25.9 MMOL/L (24-32); eGFR 83 ML/MIN
[2020-02-19] MEDS: gabapentin 300mg capsule PO SCH (08:19)
[2020-02-19] MEDS: carvedilol 6.25mg tablet PO SCH ×2 (08:19→19:39)
[2020-02-19] MEDS: aspirin 325mg tablet, delayed-release (Ecotrin) PO SCH (08:19)
[2020-02-19] MEDS: HYDROchlorothiazide 25mg tablet PO SCH (08:20)
[2020-02-19] MEDS: lactobacillus rhamnosus 10,000 MMU CELLS/CAPSULE PO SCH ×2 (08:20→19:39)
[2020-02-19] MEDS: pantoprazole 40mg Tablet.DR PO SCH (08:20)
[2020-02-19] MEDS: heparin, porcine 5000 units/ml vial SQ SCH ×2 (08:21→16:45)
[2020-02-19] MEDS: mupirocin 2% nasal ointment 1gm UD NS SCH (08:21)
[2020-02-19] MEDS: sennosides/docusate sodium tablet PO SCH ×2 (08:21→19:39)
[2020-02-19] MEDS: sodium chloride 0.45% 1,000 ML IV SCH (09:30)
--- NOTE | 2020-02-19 09:30 | NUR ---
at bedside,chest tubes dc'd by ,pacer wires dc'd also,will moniter v/s q 15 for 1 hour
--- NOTE | 2020-02-19 11:30 | NUR ---
f/c dc'd without problem,per md orders
--- NOTE | 2020-02-19 14:55 | NUR ---
Initial: Pt s/p CABG PO decreased to 25-50% avg NCS diet down from 75-100% initially this admit. 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 ALLISON d/w RN regarding carb controlled diet additional this admit given new DM DX if MD agreeable. Pt seen by RD for written/verbal CABG/HH/DM diet eds w/ RD contact information provided. Pt reports at home already working on meal planning both post-op and for new DM DX. Pt is agreeable to Venkatesh strawberry/strawberry-banana smoothies BIDLD in addition to chocolate ensure high protein WB; MD notified. Pt reports appetite decreased mainly r/t groggy feeling from pain control though CT removed today and has helped pain levels. RD encouraged pt to request for RD this admit and contact dietitian's office following discharge if further questions/concerns. LBM 02/15 receiving routine senna. Will continue to monitor for additional protein needs post-op. Rec: 1. continues NCS diet; add carb controlled if MD agreeable given new DM DX this admit 2. chocolate ensure high protein WB; strawberry/strawberry-banana venkatesh smoothies BIDLD 3. routine bowel care 4. wt per rx Addendum: 02/19/20 at [address] Amended: Links added.
[2020-02-19] MEDS: JUVEN Smoothie Arginine/Glut./Ca2+Bmb (Juven 19.3pkt) 240ml cup PO SCH (17:30)
--- NOTE | 2020-02-19 18:00 | NUR ---
Patient in room MED 307. I have received report from Alejandra GUTIERREZ and had the opportunity to ask questions and assume patient care.
--- NOTE | 2020-02-19 18:15 | NUR ---
Problems reprioritized. Patient report given, questions answered & plan of care reviewed with BRENDA carrillo.
[2020-02-19] MEDS: atorvastatin 10mg tablet PO SCH (21:33)
[2020-02-19] MEDS: insulin glargine (Lantus) pen - multi-dose SQ PRN (21:50)
[2020-02-20] MEDS: heparin, porcine 5000 units/ml vial SQ SCH ×4 (00:25→23:48)
[2020-02-20 02:00] VITALS: BP 122/92
[2020-02-20] MEDS: HYDROcodone/acetaminophen 10/325mg tab PO PRN ×3 (02:36→21:02)
[2020-02-20 05:05] LABS: BASOPHILS # (AUTO) 0.1 X10'3 (0-0.2); BASOPHILS % (AUTO) 0.6 % (0-1); EOSINOPHILS # (AUTO) 0.6 X10'3 (0-0.9); EOSINOPHILS % (AUTO) 6.4 % (0-6); HEMATOCRIT 31.8 % (42.0-52.0); HEMOGLOBIN 10.8 g/dl (14.0-17.9); LYMPHOCYTES # (AUTO) 1.7 X10'3 (1.1-4.8); LYMPHOCYTES % (AUTO) 16.9 % (21-51); MEAN CORPUSCULAR HEMOGLOBIN 28.3 PG (27.0-31.0); MEAN CORPUSCULAR HGB CONC 33.8 g/dL (33.0-36.5); MEAN CORPUSCULAR VOLUME 83.7 FL (78-98); MEAN PLATELET VOLUME 7.4 FL (7.4-10.4); MONOCYTES # (AUTO) 1.3 X10'3 (0-0.9); MONOCYTES % (AUTO) 12.5 % (2-12); NEUTROPHILS # (AUTO) 6.4 X10'3 (1.8-7.7); NEUTROPHILS % (AUTO) 63.6 % (42-75); PLATELET COUNT 232 X10'3 (140-440); RED CELL DISTRIBUTION WIDTH 13.8 % (11.5-14.5); WHITE BLOOD COUNT 10.1 X10'3 (4.5-11.0)
[2020-02-20 05:14] LABS: ALBUMIN 2.7 G/DL (3.4-5.0); ANION GAP 8 (8-16); BLOOD UREA NITROGEN 16 MG/DL (7-18); BUN/CREATININE RATIO 15.7 (5.4-32.0); CALCIUM 8.2 MG/DL (8.5-10.1); CHLORIDE 103 MMOL/L (99-107); CREATININE 1.02 MG/DL (0.60-1.10); GLUCOSE 130 MG/DL (70-104); MAGNESIUM 1.9 MG/DL (1.5-2.4); PHOSPHORUS 3.9 MG/DL (2.3-4.5); POTASSIUM 3.8 MMOL/L (3.5-5.1); SODIUM 139 MMOL/L (135-145); TOTAL CARBON DIOXIDE 28.5 MMOL/L (24-32); eGFR 76 ML/MIN
[2020-02-20 06:00] VITALS: BP 128/81
--- NOTE | 2020-02-20 06:00 | NUR ---
Problems reprioritized. Patient report given, questions answered & plan of care reviewed with Hayley GUTIERREZ.
[2020-02-20] MEDS: lactose-reduced food (Ensure High Protein) 237ml bottle PO SCH (07:30)
[2020-02-20] MEDS: pantoprazole 40mg Tablet.DR PO SCH (07:36)
[2020-02-20] MEDS: lactobacillus rhamnosus 10,000 MMU CELLS/CAPSULE PO SCH ×2 (07:36→21:01)
[2020-02-20] MEDS: aspirin 325mg tablet, delayed-release (Ecotrin) PO SCH (07:36)
[2020-02-20] MEDS: sennosides/docusate sodium tablet PO SCH ×2 (07:36→21:01)
[2020-02-20] MEDS: carvedilol 6.25mg tablet PO SCH ×2 (07:36→21:01)
[2020-02-20] MEDS: HYDROchlorothiazide 25mg tablet PO SCH (07:36)
[2020-02-20 10:00] VITALS: BP 123/79
[2020-02-20] MEDS: JUVEN Smoothie Arginine/Glut./Ca2+Bmb (Juven 19.3pkt) 240ml cup PO SCH ×2 (12:30→17:30)
[2020-02-20 14:00] VITALS: BP 139/82
[2020-02-20 15:06] LABS: ACTIVATED CLOTTING TIME 110 SEC (101-148)
--- NOTE | 2020-02-20 17:56 | NUR ---
Student documentation: I have reviewed and agree with interventions, assessments performed and documented by SN SHANDA. Student Medication Administration: For this medication-pass time frame, medication were reviewed, dispensed, administered and documented per hospital policy by SN SHANDA.
[2020-02-20 18:00] VITALS: BP 141/83
--- NOTE | 2020-02-20 18:20 | NUR ---
Problems reprioritized. Patient report given, questions answered & plan of care reviewed with BRENDA Garrison.
--- NOTE | 2020-02-20 18:24 | NUR ---
Problems reprioritized. Patient report given, questions answered & plan of care reviewed with Darvin GUTIERREZ.
[2020-02-20] MEDS: atorvastatin 10mg tablet PO SCH (21:01)
[2020-02-20 22:00] VITALS: BP 115/75
[2020-02-21 02:00] VITALS: BP 145/94
[2020-02-21 06:00] VITALS: BP 121/86
--- NOTE | 2020-02-21 06:00 | NUR ---
Patient in room MED 307. I have received report from BRENDA Garrison and had the opportunity to ask questions and assume patient care.
[2020-02-21 06:06] LABS: BASOPHILS # (AUTO) 0.1 X10'3 (0-0.2); BASOPHILS % (AUTO) 0.7 % (0-1); EOSINOPHILS # (AUTO) 0.7 X10'3 (0-0.9); EOSINOPHILS % (AUTO) 7.4 % (0-6); HEMATOCRIT 34.3 % (42.0-52.0); HEMOGLOBIN 11.7 g/dl (14.0-17.9); LYMPHOCYTES # (AUTO) 1.5 X10'3 (1.1-4.8); LYMPHOCYTES % (AUTO) 15.8 % (21-51); MEAN CORPUSCULAR HEMOGLOBIN 28.6 PG (27.0-31.0); MEAN PLATELET VOLUME 7.4 FL (7.4-10.4); MONOCYTES % (AUTO) 10.7 % (2-12); NEUTROPHILS # (AUTO) 6.2 X10'3 (1.8-7.7); NEUTROPHILS % (AUTO) 65.4 % (42-75); PLATELET COUNT 299 X10'3 (140-440); RED BLOOD COUNT 4.08 X10'6 (4.70-6.10); RED CELL DISTRIBUTION WIDTH 13.9 % (11.5-14.5); WHITE BLOOD COUNT 9.5 X10'3 (4.5-11.0)
[2020-02-21 06:15] LABS: ALBUMIN 2.7 G/DL (3.4-5.0); ANION GAP 8 (8-16); BLOOD UREA NITROGEN 15 MG/DL (7-18); BUN/CREATININE RATIO 14.9 (5.4-32.0); CALCIUM 8.8 MG/DL (8.5-10.1); CHLORIDE 101 MMOL/L (99-107); CREATININE 1.01 MG/DL (0.60-1.10); GLUCOSE 130 MG/DL (70-104); MAGNESIUM 2.1 MG/DL (1.5-2.4); PHOSPHORUS 3.9 MG/DL (2.3-4.5); SODIUM 138 MMOL/L (135-145); eGFR 77 ML/MIN
--- NOTE | 2020-02-21 06:19 | NUR ---
Problems reprioritized. Patient report given, questions answered & plan of care reviewed with Carli GUTIERREZ.
[2020-02-21] MEDS: lactobacillus rhamnosus 10,000 MMU CELLS/CAPSULE PO SCH (07:23)
[2020-02-21] MEDS: carvedilol 6.25mg tablet PO SCH (07:25)
[2020-02-21] MEDS: HYDROcodone/acetaminophen 10/325mg tab PO PRN (07:25)
[2020-02-21] MEDS: HYDROchlorothiazide 25mg tablet PO SCH (07:25)
[2020-02-21] MEDS: sennosides/docusate sodium tablet PO SCH (07:26)
[2020-02-21] MEDS: potassium Cl 20 mEq SR tablet PO PRN (07:26)
[2020-02-21] MEDS: aspirin 325mg tablet, delayed-release (Ecotrin) PO SCH (07:26)
[2020-02-21] MEDS: pantoprazole 40mg Tablet.DR PO SCH (07:26)
[2020-02-21] MEDS: heparin, porcine 5000 units/ml vial SQ SCH (07:27)
[2020-02-21] MEDS: lactose-reduced food (Ensure High Protein) 237ml bottle PO SCH (07:30)
[2020-02-21] MEDS ORDERED: HCTZ25T PO (08:53)
[2020-02-21] MEDS ORDERED: CARV6.253 PO (08:53)
[2020-02-21] MEDS ORDERED: ATOR10TA PO (08:53)
[2020-02-21] MEDS ORDERED: HYDR-4353 PO (08:53)
[2020-02-21] MEDS ORDERED: SENN-166 PO (08:53)
[2020-02-21] MEDS: sodium chloride 0.45% 1,000 ML IV SCH (09:30)
--- NOTE | 2020-02-21 09:56 | NUR ---
Discharge instructions printed and reviewed with patient at this time, ride unavailable until 1100am this morning.
[2020-02-21 10:00] VITALS: BP 115/79
--- NOTE | 2020-02-21 12:05 | NUR ---
Patient stable for discharge per MD orders. All discharge instructions reviewed with patient, and all questions answered. Education provided about A1C level, Diabetes management and incision care. [facility] in [place]. Patient medications retrieved from pharmacy. Medication regimen reviewed. PIV d/stephen and clean dry dressing in place. Bedside monitor taken off patient. All personal belongings collected and sent with patient.; Items retrieved from safe. Patient wheeled to lobby by hospital staff at 1205, to b transported home by .
--- NOTE | 2020-02-21 12:38 | NUR ---
Student documentation: I have reviewed and agree with all interventions, assessments, and medication passes performed and documented by SN Suhas.
== END 2020-02-21 12:05 | disposition home or self-care (01) | DRG 234 ==
LOC: SSTAY O 07:39 → MED 3N 12:02 → UNDOADMIN 12:02 → ICU 2S 02-17 09:05 → MED 3N 02-18 14:00
PROVIDERS: ADMIT Thoracic Surgery (Cardiothoracic Vascular Surgery); ATTEND Thoracic Surgery (Cardiothoracic Vascular Surgery)
PROC: 4A023N7 Measurement of Cardiac Sampling and Pressure, Left Heart, Percutaneous Approach (ICD-10-PCS; principal; 2020-02-15)
PROC: B2111ZZ Fluoroscopy of Multiple Coronary Arteries using Low Osmolar Contrast (ICD-10-PCS; 2020-02-15)
PROC: B41F1ZZ Fluoroscopy of Right Lower Extremity Arteries using Low Osmolar Contrast (ICD-10-PCS; 2020-02-15)
PROC: 02100Z9 Bypass Coronary Artery, One Artery from Left Internal Mammary, Open Approach (ICD-10-PCS; 2020-02-17)
PROC: 02HV33Z Insertion of Infusion Device into Superior Vena Cava, Percutaneous Approach (ICD-10-PCS; 2020-02-17)
PROC: B548ZZA Ultrasonography of Superior Vena Cava, Guidance (ICD-10-PCS; 2020-02-17)
DX: I25.110 Atherosclerotic heart disease of native coronary artery with unstable angina pectoris (principal); E66.9 Obesity, unspecified; E78.5 Hyperlipidemia, unspecified; G47.33 Obstructive sleep apnea (adult) (pediatric); I10 Essential (primary) hypertension; R73.9 Hyperglycemia, unspecified; M54.5 Low back pain; Z68.37 Body mass index [BMI] 37.0-37.9, adult
CPT/HCPCS: 93312; 93325; 93454; Z7506; Z7508; 36415; 36600; 71045; 71046; 80048; 80053; 82330; 82435; 82803; 82947; 82948; 83036; 83735; 84100; 84132; 84295; 85018; 85025; 85347; 85384; 85576; 85610; 85730; 86885; 86900; 86901; 86920; 87081; 87635; 93005; 93880; 93971; 94002; 94010; 94640; 94668; 94760; 97110; 97116; 97161; 97530; 99152; 99153; A4618; A4620; A6258; A6449; A7000; A7048; C1751; C1760; C1769; C9113; G0378; J0171; J0690; J0780; J1100; J1644; J1650; J1815; J1885; J2001; J2060; J2250; J2270; J2440; J2704; J3010; J3370; J3475; J3480; J7030; J7040; J7050; J7120; P9045; Q0163; Q9967

== ENCOUNTER 2020-08-29 09:43 | Day surgery (SDC) | payer BC ==
[~2020-08-29] VITALS: Ht 175.3 cm; Wt 112.9 kg
[2020-08-29] VITALS (12 sets, daily range): BP systolic 113–150; BP diastolic 70–95
[~2020-08-29 09:43] MED LIST changes: +ASPI-611 PO; +ATOR10TA PO; -CARV-50 PO; +CARV6.253 PO; +HYDR-4353 PO; +HYDR25TA5 PO; -LOSA1TAB39 PO; +SENN-166 PO
[2020-08-29] MEDS ORDERED: MULT-1085 PO (10:23)
[2020-08-29] MEDS ORDERED: LOSA1TAB39 PO (10:23)
[2020-08-29] MEDS ORDERED: ATOR20TA66 PO (10:23)
[2020-08-29] MEDS ORDERED: NITR0.4T48 SL (10:23)
[2020-08-29] MEDS ORDERED: METF-950 PO (10:23)
[2020-08-29] MEDS ORDERED: CARV-50 PO (10:23)
[2020-08-29] MEDS ORDERED: diphenhydrAMINE 25mg capsule PO ONE (11:00)
[2020-08-29] MEDS ORDERED: LORazepam 0.5 MG tablet PO PRN (11:00)
[2020-08-29 11:01] LABS: BASOPHILS # (AUTO) 0.1 X10'3 (0-0.2); BASOPHILS % (AUTO) 0.9 % (0-1); EOSINOPHILS # (AUTO) 0.5 X10'3 (0-0.9); EOSINOPHILS % (AUTO) 5.9 % (0-6); HEMATOCRIT 43.2 % (42.0-52.0); HEMOGLOBIN 14.8 g/dl (14.0-17.9); LYMPHOCYTES # (AUTO) 1.5 X10'3 (1.1-4.8); LYMPHOCYTES % (AUTO) 18.6 % (21-51); MEAN CORPUSCULAR HEMOGLOBIN 28.3 PG (27.0-31.0); MEAN CORPUSCULAR HGB CONC 34.2 g/dL (33.0-36.5); MEAN PLATELET VOLUME 8.1 FL (7.4-10.4); MONOCYTES # (AUTO) 0.7 X10'3 (0-0.9); MONOCYTES % (AUTO) 8.3 % (2-12); NEUTROPHILS # (AUTO) 5.4 X10'3 (1.8-7.7); NEUTROPHILS % (AUTO) 66.3 % (42-75); PLATELET COUNT 275 X10'3 (140-440); RED BLOOD COUNT 5.21 X10'6 (4.70-6.10); RED CELL DISTRIBUTION WIDTH 15.1 % (11.5-14.5); WHITE BLOOD COUNT 8.2 X10'3 (4.5-11.0)
[2020-08-29 11:06] LABS: ALBUMIN 3.7 G/DL (3.4-5.0); ANION GAP 11 (8-16); BLOOD UREA NITROGEN 16 MG/DL (7-18); BUN/CREATININE RATIO 18.2 (5.4-32.0); CALCIUM 9.3 MG/DL (8.5-10.1); CHLORIDE 104 MMOL/L (99-107); CREATININE 0.88 MG/DL (0.60-1.10); GLUCOSE 138 MG/DL (70-104); POTASSIUM 3.8 MMOL/L (3.5-5.1); SODIUM 142 MMOL/L (135-145); TOTAL CARBON DIOXIDE 26.8 MMOL/L (24-32); eGFR 90 ML/MIN
[2020-08-29 11:13] LABS: PARTIAL THROMBOPLASTIN TIME 25 SECONDS (22-32)
[2020-08-29] MEDS ORDERED: normal saline 1000ml 1,000 ML IV SCH ×2 (11:15)
[2020-08-29] MEDS ORDERED: dextrose 50%-water 50ml dispensing syringe IV PRN ×2 (11:15)
[2020-08-29] MEDS ORDERED: nitroGLYCERIN 0.4mg SUBLingual tab SL PRN (11:15)
[2020-08-29] MEDS ORDERED: insulin Lispro (HumaLOG) vial - multi-dose SQ SCH (11:15)
[2020-08-29] MEDS ORDERED: dextrose ORAL solution 15 GM/59 ML bottle PO PRN ×2 (11:15)
[2020-08-29] MEDS ORDERED: glucagon, human recombinant 1mg kit SUBCUT PRN (11:15)
[2020-08-29] MEDS ORDERED: LIDOcaine 1% (10mg/ml)w/preservative injection 20ml MDV ONE (11:29)
[2020-08-29] MEDS ORDERED: fentaNYL/PF 50MCG/1 ML 2ML syringe ONE (11:29)
[2020-08-29] MEDS ORDERED: iohexol 350 MG/ML 50ML vial IV ONE (11:29)
[2020-08-29] MEDS ORDERED: iohexol 350MG/ML 100ml bottle IV ONE (11:29)
[2020-08-29] MEDS ORDERED: midazolam 1 mg/ML 2ml injection ONE (11:29)
[2020-08-29 12:19] LABS: HEMOGLOBIN A1C 7.1 % (4.5-6.2)
[2020-08-29 12:27] LABS: TROPONIN I < 0.04 NG/ML (0.0-0.05)
[2020-08-29] MEDS ORDERED: ondansetron/PF 4mg/2ml inj IV PRN (12:50)
[2020-08-29] MEDS ORDERED: HYDROcodone/acetaminophen 5mg/325mg tablet PO PRN (12:55)
[2020-08-29] MEDS ORDERED: HYDROcodone/acetaminophen 10/325mg tab PO PRN (12:55)
[2020-08-29] MEDS ORDERED: OXAZEpam 15mg capsule PO PRN (12:55)
[2020-08-29] MEDS ORDERED: insulin glargine (Lantus) pen - multi-dose SQ SCH (21:00)
== END 2020-08-29 19:25 | disposition home or self-care (01) ==
LOC: SSTAY O 09:43
PROVIDERS: ATTEND Internal Medicine Cardiovascular Disease
DX: R06.09 Other forms of dyspnea (principal); R06.02 Shortness of breath; I25.119 Atherosclerotic heart disease of native coronary artery with unspecified angina pectoris; E11.9 Type 2 diabetes mellitus without complications; I10 Essential (primary) hypertension; J44.9 Chronic obstructive pulmonary disease, unspecified; E78.5 Hyperlipidemia, unspecified; I25.2 Old myocardial infarction; E66.9 Obesity, unspecified; Z68.36 Body mass index [BMI] 36.0-36.9, adult; Z95.1 Presence of aortocoronary bypass graft; Z79.84 Long term (current) use of oral hypoglycemic drugs; Z79.82 Long term (current) use of aspirin; Z79.899 Other long term (current) drug therapy
CPT/HCPCS: 36415; 71046; 80048; 82948; 83036; 83880; 84484; 85025; 85610; 85730; 93005; 93459; 99152; C1760; C1769; J1644; J2001; J2250; J3010; J7030; Q0163; Q9967; 99153; A4620; A6258; J1815

== ENCOUNTER 2023-05-18 18:02 | Inpatient (IN) | payer BC, OTHER ==
[~2023-05-18] VITALS: Ht 175.3 cm; Wt 100.5 kg
[~2023-05-18 18:02] MED LIST changes: -ATOR10TA PO; +ATOR20TA66 PO; +CARV-50 PO; -CARV6.253 PO; -HYDR-4353 PO; -HYDR25TA5 PO; +LOSA1TAB39 PO; +METF-1203 PO; +MULT-1085 PO; +NITR0.4T48 SL; -SENN-166 PO
[2023-05-18] MEDS: CefTRIAXone/D5W-Rocephin 1gm 50 ML IV ONE (20:00)
[2023-05-18 20:10] LABS: BASOPHILS # (AUTO) 0.1 X10'3 (0-0.2); BASOPHILS % (AUTO) 0.7 % (0-1); EOSINOPHILS # (AUTO) 0.5 X10'3 (0-0.9); EOSINOPHILS % (AUTO) 2.9 % (0-6); HEMATOCRIT 41.7 % (42.0-52.0); LYMPHOCYTES # (AUTO) 1.5 X10'3 (1.1-4.8); LYMPHOCYTES % (AUTO) 9.4 % (21-51); MEAN CORPUSCULAR HEMOGLOBIN 27.7 PG (27.0-31.0); MEAN CORPUSCULAR HGB CONC 33.6 g/dL (33.0-36.5); MEAN CORPUSCULAR VOLUME 82.3 FL (78-98); MEAN PLATELET VOLUME 7.7 FL (7.4-10.4); MONOCYTES # (AUTO) 1.4 X10'3 (0-0.9); MONOCYTES % (AUTO) 9.2 % (2-12); NEUTROPHILS # (AUTO) 12.2 X10'3 (1.8-7.7); NEUTROPHILS % (AUTO) 77.8 % (42-75); PLATELET COUNT 456 X10'3 (140-440); RED BLOOD COUNT 5.07 X10'6 (4.70-6.10); RED CELL DISTRIBUTION WIDTH 14.1 % (11.5-14.5); WHITE BLOOD COUNT 15.7 X10'3 (4.5-11.0)
[2023-05-18 20:24] LABS: ALANINE AMINOTRANSFERASE 54 U/L (12-78); ALBUMIN 3.2 G/DL (3.4-5.0); ALBUMIN/GLOBULIN RATIO 0.7 (1.1-1.5); ALKALINE PHOSPHATASE 114 IU/L (46-116); ANION GAP 12 (8-16); ASPARTATE AMINO TRANSFERASE 27 U/L (10-37); BILIRUBIN,TOTAL 0.9 MG/DL (0.1-1.0); BLOOD UREA NITROGEN 20 MG/DL (7-18); BUN/CREATININE RATIO 18.9 (10.0-20.0); C-REACTIVE PROTEIN 19.96 MG/DL (0.0-0.5); CHLORIDE 103 MMOL/L (99-107); CREATININE 1.06 MG/DL (0.60-1.10); GLUCOSE 128 MG/DL (70-104); POTASSIUM 3.7 MMOL/L (3.5-5.1); SODIUM 138 MMOL/L (135-145); TOTAL CARBON DIOXIDE 23.2 MMOL/L (24-32); eCRCL 77 ML/MIN; eGFR 72 ML/MIN
[2023-05-18 20:27] LABS: APTT 31 SECONDS (22-32); PROTHROMBIN TIME 10.9 SECONDS (9.0-12.0)
[2023-05-18] MEDS: vancomycin/NS 1 GM ADD-VANTAGE 250 ML IV ONE (20:30)
[2023-05-18] MEDS: HYDROmorphone 1 mg/ml syringe IV ONE (20:31)
[2023-05-18] MEDS: normal saline 1000ML IV soln IVB ONE (20:47)
[2023-05-18 21:05] LABS: BILIRUBIN,URINE NEGATIVE (Neg); CLARITY,URINE CLEAR (Clear); COLOR,URINE YELLOW (Yellow); GLUCOSE, URINE 500 mg/dl (Neg); KETONES,URINE TRACE mg/dl (Neg); LEUKOCYTE ESTERASE ,URINE NEGATIVE (Neg); NITRITES, URINE NEGATIVE (Neg); OCCULT BLOOD,URINE NEGATIVE (Neg); PROTEIN,URINE NEGATIVE (Neg)
[2023-05-18 21:08] LABS: UA COLLECTION TYPE CLN CATCH MIDSTREAM
[2023-05-18] MEDS ORDERED: mag hydrox/Alum hydrox/simeth 30ml oral suspension PO PRN (22:35)
[2023-05-18] MEDS ORDERED: magnesium Cl slow-release 64mg tablet PO PRN (22:35)
[2023-05-18] MEDS ORDERED: magnesium hydroxide 30ml (MOM) UD suspension PO PRN (22:35)
[2023-05-18] MEDS ORDERED: magnesium 2GM in 50ml NS 50 ML IV PRN (22:35)
[2023-05-18] MEDS ORDERED: potassium Cl 40MEQ/1/2NS 520ml 520 ML IV PRN (22:35)
[2023-05-18] MEDS ORDERED: magnesium 4gm in 100ml NS 100 ML IV PRN (22:35)
[2023-05-18] MEDS ORDERED: potassium Cl 20 mEq SR tablet PO PRN ×2 (22:35)
[2023-05-18] MEDS ORDERED: HYDROcodone/acetaminophen 5mg/325mg tablet PO PRN (22:35)
[2023-05-18] MEDS ORDERED: morphine 2 MG/ML inj. syringe IV PRN ×2 (22:35)
[2023-05-18] MEDS ORDERED: acetaminophen 325mg tablet PO PRN (22:35)
[2023-05-18] MEDS ORDERED: insulin Lispro (HumaLOG) vial - multi-dose SQ SCH (22:55)
[2023-05-18] MEDS ORDERED: glucagon, human recombinant 1mg kit SUBCUT PRN (22:55)
[2023-05-18] MEDS ORDERED: dextrose 50%-water 50ml dispensing syringe IV PRN ×2 (22:55)
[2023-05-18] MEDS ORDERED: DEXTROSE 15 GM of carb/4 tabs (each vial/BOTTLE has 4 tablets) PO PRN ×2 (22:55)
[2023-05-18] MEDS: VANCOMYCIN 750MG IV in NS 250 ML IV ONE (23:22)
[2023-05-18] MEDS: normal saline 1000ml 1,000 ML IV SCH (23:22)
[2023-05-18] MEDS: HYDROmorphone 1 mg/ml syringe IV PRN (23:35)
[2023-05-19] MEDS: HYDROcodone/acetaminophen 10/325mg tab PO PRN (03:09)
[2023-05-19] MEDS: K and/or MAG REPLACEMENT MC SCH (08:00)
[2023-05-19 08:01] LABS: BASOPHILS # (AUTO) 0.1 X10'3 (0-0.2); BASOPHILS % (AUTO) 0.7 % (0-1); EOSINOPHILS # (AUTO) 0.5 X10'3 (0-0.9); HEMATOCRIT 29.5 % (42.0-52.0); HEMOGLOBIN 10.1 g/dl (14.0-17.9); LYMPHOCYTES # (AUTO) 1.3 X10'3 (1.1-4.8); LYMPHOCYTES % (AUTO) 10.5 % (21-51); MEAN CORPUSCULAR HGB CONC 34.4 g/dL (33.0-36.5); MEAN CORPUSCULAR VOLUME 81.5 FL (78-98); MEAN PLATELET VOLUME 7.3 FL (7.4-10.4); MONOCYTES # (AUTO) 1.4 X10'3 (0-0.9); MONOCYTES % (AUTO) 11.7 % (2-12); NEUTROPHILS % (AUTO) 73.1 % (42-75); PLATELET COUNT 302 X10'3 (140-440); RED BLOOD COUNT 3.62 X10'6 (4.70-6.10); RED CELL DISTRIBUTION WIDTH 13.8 % (11.5-14.5); WHITE BLOOD COUNT 12.3 X10'3 (4.5-11.0)
[2023-05-19 08:12] LABS: ALANINE AMINOTRANSFERASE 35 U/L (12-78); ALBUMIN 2.1 G/DL (3.4-5.0); ALBUMIN/GLOBULIN RATIO 0.7 (1.1-1.5); ALKALINE PHOSPHATASE 78 IU/L (46-116); ANION GAP 10 (8-16); ASPARTATE AMINO TRANSFERASE 25 U/L (10-37); BILIRUBIN,TOTAL 0.8 MG/DL (0.1-1.0); BLOOD UREA NITROGEN 11 MG/DL (7-18); BUN/CREATININE RATIO 15.3 (10.0-20.0); CALCIUM 7.6 MG/DL (8.5-10.1); CHLORIDE 108 MMOL/L (99-107); CREATININE 0.72 MG/DL (0.60-1.10); GLUCOSE 102 MG/DL (70-104); POTASSIUM 3.5 MMOL/L (3.5-5.1); SODIUM 141 MMOL/L (135-145); TOTAL CARBON DIOXIDE 22.9 MMOL/L (24-32); TOTAL PROTEIN 5.3 G/DL (6.4-8.2); eCRCL 113 ML/MIN; eGFR > 90 ML/MIN
[2023-05-19] MEDS: CefTRIAXone/D5W-Rocephin 1gm 50 ML IV SCH (08:25)
[2023-05-19] MEDS: aspirin 81mg, enteric-coated 1 TAB TABLET.DR PO ONE (08:26)
[2023-05-19] MEDS: losartan 50mg tablet PO SCH (08:26)
[2023-05-19] MEDS: carvedilol 6.25mg tablet PO SCH (08:27)
[2023-05-19] MEDS: heparin, porcine 5000 units/ml vial SQ SCH (08:28)
[2023-05-19] MEDS ORDERED: VANCOmycin 1250MG/NS 250ml Bag 250 ML IV SCH (09:00)
[2023-05-19] MEDS ORDERED: DULA0.75 SUBCUT (10:41)
[2023-05-19] MEDS ORDERED: meperidine/PF 25mg/ml syringe IV PRN ×5 (10:50→21:00)
[2023-05-19] MEDS ORDERED: morphine 4 MG/ML inj SYRINge IV PRN ×2 (10:50→21:00)
[2023-05-19] MEDS: ringers solution, lacted 1,000 ML IV SCH (10:50)
[2023-05-19] MEDS ORDERED: ondansetron/PF 4mg/2ml inj IV PRN ×2 (10:50→21:00)
[2023-05-19] MEDS ORDERED: proCHLORperazine 10 MG/2 ml inj IV PRN ×2 (10:50→21:00)
[2023-05-19] MEDS ORDERED: enalaprilat dihydrate 2.5mg/2ml vial IV PRN ×2 (10:50→21:00)
[2023-05-19] MEDS ORDERED: labetalol 20mg/4ml (5mg/ml) syringe IV PRN ×2 (10:50→21:00)
[2023-05-19] MEDS ORDERED: morphine 2 MG/ML inj. syringe IV PRN ×2 (10:50→21:00)
[2023-05-19] MEDS: vancomycin/NS 1 GM ADD-VANTAGE 250 ML IV SCH (11:06)
[2023-05-19] MEDS: insulin glargine (Lantus) pen - multi-dose SQ SCH (21:00)
[2023-05-19] MEDS ORDERED: ringers solution, lacted 1,000 ML IV SCH (21:00)
[2023-05-19] MEDS ORDERED: ondansetron/PF 4mg/2ml inj ONE (21:55)
[2023-05-19] MEDS ORDERED: sevoflurane 250ml liquid IH ONE (21:55)
[2023-05-19] MEDS ORDERED: fentaNYL/PF 50MCG/1 ML 2ML syringe ONE ×2 (22:04→22:58)
[2023-05-19] MEDS ORDERED: MIDAZolam 1 MG/ML 5ML VIAL ONE (22:07)
[2023-05-19] MEDS ORDERED: LIDOcaine 2% (20mg/ml) 5ml vial ONE (22:27)
[2023-05-19] MEDS ORDERED: propofol inj 20 ML IV ONE (22:27)
[2023-05-19] MEDS ORDERED: ceFAZolin 1000mg inj ONE ×2 (22:40)
[2023-05-19] MEDS ORDERED: dexamethasone sod phosphate 4mg/ml inj. ONE (22:40)
[2023-05-19] MEDS ORDERED: ROPIVAcaine 0.5% (5mg/ml) 30ml vial ONE (22:40)
[2023-05-19] MEDS ORDERED: ePHEDrine 50MG/ML INJ. ONE (23:07)
[2023-05-19 23:30] VITALS: BP 146/78; PULSE 88; RESP 16; O2SAT 100
[2023-05-19 23:40] VITALS: BP 131/69; PULSE 85; RESP 10; O2SAT 100
[2023-05-19 23:50] VITALS: BP 127/67; PULSE 81; RESP 11; O2SAT 100
[2023-05-20] VITALS (18 sets, daily range): BP systolic 96–123; BP diastolic 52–71; PULSE 61–79; RESP 12–17; TEMP 97.3–98.4; O2SAT 94–99
[2023-05-20] MEDS: meperidine/PF 25mg/ml syringe IV PRN (00:09)
[2023-05-20] MEDS: VANCOMYCIN LEVEL IV ONE (00:30)
[2023-05-20] MEDS: vancomycin 1,000mg inj ONE (00:38)
[2023-05-20] MEDS: atorvastatin 20mg tablet PO SCH (01:07)
[2023-05-20 01:34] LABS: BASOPHILS % (AUTO) 0.3 % (0-1); EOSINOPHILS # (AUTO) 0.2 X10'3 (0-0.9); EOSINOPHILS % (AUTO) 1.3 % (0-6); HEMATOCRIT 29.5 % (42.0-52.0); HEMOGLOBIN 10.2 g/dl (14.0-17.9); LYMPHOCYTES # (AUTO) 0.6 X10'3 (1.1-4.8); LYMPHOCYTES % (AUTO) 4.7 % (21-51); MEAN CORPUSCULAR HEMOGLOBIN 28.6 PG (27.0-31.0); MEAN CORPUSCULAR HGB CONC 34.7 g/dL (33.0-36.5); MEAN CORPUSCULAR VOLUME 82.4 FL (78-98); MEAN PLATELET VOLUME 7.3 FL (7.4-10.4); MONOCYTES # (AUTO) 0.3 X10'3 (0-0.9); MONOCYTES % (AUTO) 2.6 % (2-12); NEUTROPHILS # (AUTO) 10.9 X10'3 (1.8-7.7); NEUTROPHILS % (AUTO) 91.1 % (42-75); PLATELET COUNT 304 X10'3 (140-440); RED BLOOD COUNT 3.58 X10'6 (4.70-6.10); RED CELL DISTRIBUTION WIDTH 13.9 % (11.5-14.5)
[2023-05-20 01:49] LABS: ALANINE AMINOTRANSFERASE 35 U/L (12-78); ALBUMIN 2.1 G/DL (3.4-5.0); ALBUMIN/GLOBULIN RATIO 0.6 (1.1-1.5); ALKALINE PHOSPHATASE 78 IU/L (46-116); ANION GAP 9 (8-16); ASPARTATE AMINO TRANSFERASE 22 U/L (10-37); BILIRUBIN,TOTAL 0.5 MG/DL (0.1-1.0); BLOOD UREA NITROGEN 10 MG/DL (7-18); BUN/CREATININE RATIO 14.5 (10.0-20.0); CALCIUM 7.9 MG/DL (8.5-10.1); CHLORIDE 108 MMOL/L (99-107); CREATININE 0.69 MG/DL (0.60-1.10); GLUCOSE 130 MG/DL (70-104); POTASSIUM 3.7 MMOL/L (3.5-5.1); SODIUM 138 MMOL/L (135-145); TOTAL CARBON DIOXIDE 21.1 MMOL/L (24-32); TOTAL PROTEIN 5.6 G/DL (6.4-8.2); eCRCL 118 ML/MIN; eGFR > 90 ML/MIN
[2023-05-20 01:50] LABS: CHOL/HDL RATIO 3.5 (0.00-4.99); CHOLESTEROL 104 MG/DL (0-200); HDL CHOLESTEROL 30 MG/DL (35-60); LDL CHOLESTEROL 57 MG/DL (50-100); TRIGLYCERIDES 48 MG/DL (20-135); VANCOMYCIN,TROUGH 14.9 ug/mL (10.0-20.0)
[2023-05-20 02:06] LABS: HEMOGLOBIN A1C 5.9 % (4.5-6.2)
[2023-05-20] MEDS ORDERED: aspirin 81mg, enteric-coated 1 TAB TABLET.DR PO SCH (08:00)
[2023-05-20] MEDS: HYDROchlorothiazide 25mg tablet PO SCH (08:00)
[2023-05-20] MEDS: losartan 50mg tablet PO SCH (08:00)
[2023-05-20 08:52] LABS: C-REACTIVE PROTEIN 13.84 MG/DL (0.0-0.5)
[2023-05-20] MEDS: VANCOmycin 1250MG/NS 250ml Bag 250 ML IV SCH (09:50)
[2023-05-20] MEDS: aspirin 81mg, enteric-coated 1 TAB TABLET.DR PO SCH (09:50)
[2023-05-20] MEDS: ringers solution, lacted 1,000 ML IV SCH (14:31)
[2023-05-20] MEDS ORDERED: benzocaine/menthol oral lozeng 1 EACH BOX MM PRN (18:20)
[2023-05-20] MEDS: diphenhydrAMINE 25mg capsule PO PRN (18:46)
[2023-05-21] MEDS: VANCOMYCIN LEVEL IV ONE (00:30)
[2023-05-21 01:34] LABS: ALANINE AMINOTRANSFERASE 44 U/L (12-78); ALBUMIN/GLOBULIN RATIO 0.6 (1.1-1.5); ALKALINE PHOSPHATASE 70 IU/L (46-116); ANION GAP 8 (8-16); ASPARTATE AMINO TRANSFERASE 25 U/L (10-37); BILIRUBIN,TOTAL 0.3 MG/DL (0.1-1.0); BLOOD UREA NITROGEN 13 MG/DL (7-18); BUN/CREATININE RATIO 17.8 (10.0-20.0); CALCIUM 8.1 MG/DL (8.5-10.1); CHLORIDE 109 MMOL/L (99-107); CREATININE 0.73 MG/DL (0.60-1.10); GLUCOSE 139 MG/DL (70-104); POTASSIUM 3.7 MMOL/L (3.5-5.1); SODIUM 141 MMOL/L (135-145); TOTAL CARBON DIOXIDE 24.3 MMOL/L (24-32); TOTAL PROTEIN 5.5 G/DL (6.4-8.2); eCRCL 112 ML/MIN; eGFR > 90 ML/MIN
[2023-05-21 01:35] LABS: VANCOMYCIN,TROUGH 22.4 ug/mL (10.0-20.0)
[2023-05-21 06:00] VITALS: BP 102/59; PULSE 61; RESP 15; TEMP 97.7; O2SAT 96
[2023-05-21 06:23] LABS: BASOPHILS % (AUTO) 0.3 % (0-1); EOSINOPHILS % (AUTO) 0.1 % (0-6); HEMATOCRIT 26.9 % (42.0-52.0); HEMOGLOBIN 9.3 g/dl (14.0-17.9); LYMPHOCYTES # (AUTO) 1.4 X10'3 (1.1-4.8); LYMPHOCYTES % (AUTO) 11.7 % (21-51); MEAN CORPUSCULAR HEMOGLOBIN 28.1 PG (27.0-31.0); MEAN CORPUSCULAR HGB CONC 34.4 g/dL (33.0-36.5); MEAN CORPUSCULAR VOLUME 81.8 FL (78-98); MEAN PLATELET VOLUME 7.3 FL (7.4-10.4); MONOCYTES # (AUTO) 0.9 X10'3 (0-0.9); MONOCYTES % (AUTO) 7.6 % (2-12); NEUTROPHILS # (AUTO) 9.4 X10'3 (1.8-7.7); NEUTROPHILS % (AUTO) 80.3 % (42-75); PLATELET COUNT 328 X10'3 (140-440); RED BLOOD COUNT 3.29 X10'6 (4.70-6.10); RED CELL DISTRIBUTION WIDTH 13.9 % (11.5-14.5); WHITE BLOOD COUNT 11.8 X10'3 (4.5-11.0)
[2023-05-21 10:00] VITALS: BP 111/63; PULSE 73; RESP 18; TEMP 97.8; O2SAT 98
[2023-05-21] MEDS ORDERED: sennosides/docusate sodium tablet PO PRN (14:30)
[2023-05-21] MEDS ORDERED: oxyCODONE/APAP 5-325mg tablet PO PRN (14:30)
[2023-05-21] MEDS ORDERED: vancomycin/NS 1 GM ADD-VANTAGE 250 ML IV SCH (17:00)
[2023-05-21 18:00] VITALS: BP 131/71; PULSE 67; RESP 13; TEMP 98.9; O2SAT 98
[2023-05-21 20:00] VITALS: RESP 14; O2SAT 98
[2023-05-21 22:00] VITALS: BP 114/64; PULSE 67; RESP 18; TEMP 98; O2SAT 100
[2023-05-21] MEDS: cefazolin 2gm/D5W 100mL 100 ML IV SCH (23:46)
[2023-05-22] MEDS: oxyCODONE/APAP 10/325mg tablet PO PRN (04:32)
[2023-05-22 06:00] VITALS: BP 115/75; PULSE 72; RESP 16; TEMP 97.4; O2SAT 99
[2023-05-22 06:31] LABS: BASOPHILS # (AUTO) 0.1 X10'3 (0-0.2); BASOPHILS % (AUTO) 0.9 % (0-1); EOSINOPHILS # (AUTO) 0.6 X10'3 (0-0.9); EOSINOPHILS % (AUTO) 6.8 % (0-6); HEMOGLOBIN 9.6 g/dl (14.0-17.9); LYMPHOCYTES # (AUTO) 1.7 X10'3 (1.1-4.8); LYMPHOCYTES % (AUTO) 20.6 % (21-51); MEAN CORPUSCULAR HGB CONC 34.2 g/dL (33.0-36.5); MEAN CORPUSCULAR VOLUME 81.7 FL (78-98); MEAN PLATELET VOLUME 7.4 FL (7.4-10.4); MONOCYTES % (AUTO) 12.3 % (2-12); NEUTROPHILS # (AUTO) 4.9 X10'3 (1.8-7.7); NEUTROPHILS % (AUTO) 59.4 % (42-75); PLATELET COUNT 358 X10'3 (140-440); RED BLOOD COUNT 3.43 X10'6 (4.70-6.10); RED CELL DISTRIBUTION WIDTH 13.9 % (11.5-14.5); WHITE BLOOD COUNT 8.3 X10'3 (4.5-11.0)
[2023-05-22 06:48] LABS: ALANINE AMINOTRANSFERASE 62 U/L (12-78); ALBUMIN 2.1 G/DL (3.4-5.0); ALBUMIN/GLOBULIN RATIO 0.6 (1.1-1.5); ALKALINE PHOSPHATASE 72 IU/L (46-116); ANION GAP 5 (8-16); ASPARTATE AMINO TRANSFERASE 39 U/L (10-37); BILIRUBIN,TOTAL 0.3 MG/DL (0.1-1.0); BLOOD UREA NITROGEN 10 MG/DL (7-18); BUN/CREATININE RATIO 11.8 (10.0-20.0); CHLORIDE 108 MMOL/L (99-107); CREATININE 0.85 MG/DL (0.60-1.10); GLUCOSE 102 MG/DL (70-104); POTASSIUM 3.6 MMOL/L (3.5-5.1); SODIUM 143 MMOL/L (135-145); TOTAL CARBON DIOXIDE 30.3 MMOL/L (24-32); TOTAL PROTEIN 5.5 G/DL (6.4-8.2); eCRCL 96 ML/MIN; eGFR > 90 ML/MIN
[2023-05-22] MEDS: rifampin 300mg capsule PO SCH (07:26)
[2023-05-22] MEDS: JUVEN Shake w/Arg/Glut/Ca2+Bmb (Juven 19.3gm) pkt 240ml PO SCH (08:00)
[2023-05-22] MEDS: ondansetron/PF 4mg/2ml inj IV PRN (08:33)
[2023-05-22] MEDS: lactose-reduced food (Ensure Enlive) - 237ml bottle PO SCH (08:38)
[2023-05-22 10:00] VITALS: BP 125/72; PULSE 78; RESP 17; TEMP 97.9; O2SAT 96
[2023-05-22] MEDS ORDERED: diphenhydrAMINE 2%/zinc acetate cream TP PRN (12:25)
[2023-05-22] MEDS ORDERED: VANCOMYCIN LEVEL IV ONE (16:30)
[2023-05-22 20:00] VITALS: RESP 16; O2SAT 98
[2023-05-22 22:00] VITALS: BP 117/74; PULSE 73; RESP 16; TEMP 97.8; O2SAT 98
[2023-05-23 06:00] VITALS: BP 115/69; PULSE 76; RESP 16; TEMP 98.1; O2SAT 100
[2023-05-23 08:00] VITALS: RESP 20; O2SAT 95
[2023-05-23 10:00] VITALS: BP 108/73; PULSE 79; RESP 16; TEMP 98; O2SAT 96
[2023-05-23] MEDS: HYDROmorphone inj. 0.5 MG/0.5 ML DISP.SYRIN IV PRN (10:38)
[2023-05-23] MEDS: oxyCODONE/APAP 10/325mg tablet PO PRN (12:37)
[2023-05-23 18:00] VITALS: BP 117/83; PULSE 94; RESP 16; TEMP 97.8; O2SAT 99
[2023-05-23] MEDS: apixaban 2.5mg tablet PO SCH (19:35)
[2023-05-23 22:00] VITALS: BP 120/74; PULSE 83; RESP 18; TEMP 98.2; O2SAT 99
[2023-05-24 06:00] VITALS: BP 109/75; PULSE 90; RESP 18; TEMP 97.5; O2SAT 96
[2023-05-24 08:00] VITALS: RESP 18; O2SAT 96
[2023-05-24 10:00] VITALS: BP 93/64; PULSE 91; RESP 16; TEMP 98.2; O2SAT 97
[2023-05-24] MEDS: ketorolac trometh. 30mg/ml inj. IV ONE (12:11)
[2023-05-24] MEDS: ibuprofen 200mg tablet PO SCH (12:12)
[2023-05-24 18:00] VITALS: BP 113/82; PULSE 94; RESP 15; TEMP 97.9; O2SAT 99
[2023-05-24 22:00] VITALS: BP 113/72; PULSE 83; RESP 16; TEMP 97.9; O2SAT 97
[2023-05-25 06:00] VITALS: BP 113/76; PULSE 78; RESP 18; TEMP 98.4; O2SAT 96
[2023-05-25] MEDS ORDERED: LOSA1TAB36 PO (10:27)
[2023-05-25 12:00] VITALS: BP 111/77; PULSE 91; RESP 16; TEMP 97.3; O2SAT 98
[2023-05-25 18:00] VITALS: BP 123/84; PULSE 91; RESP 15; TEMP 97.2; O2SAT 98
[2023-05-25 20:00] VITALS: RESP 15; O2SAT 95
[2023-05-25 22:00] VITALS: BP 131/78; PULSE 88; RESP 14; TEMP 98.1; O2SAT 97
[2023-05-26 06:00] VITALS: BP 117/77; PULSE 78; RESP 20; TEMP 97.5; O2SAT 97
[2023-05-26 07:08] LABS: BASOPHILS # (AUTO) 0.1 X10'3 (0-0.2); BASOPHILS % (AUTO) 0.9 % (0-1); EOSINOPHILS # (AUTO) 1.9 X10'3 (0-0.9); HEMATOCRIT 33.9 % (42.0-52.0); HEMOGLOBIN 11.7 g/dl (14.0-17.9); LYMPHOCYTES # (AUTO) 1.7 X10'3 (1.1-4.8); LYMPHOCYTES % (AUTO) 16.9 % (21-51); MEAN CORPUSCULAR HEMOGLOBIN 27.8 PG (27.0-31.0); MEAN CORPUSCULAR HGB CONC 34.4 g/dL (33.0-36.5); MEAN CORPUSCULAR VOLUME 80.9 FL (78-98); MEAN PLATELET VOLUME 6.9 FL (7.4-10.4); MONOCYTES % (AUTO) 10.1 % (2-12); NEUTROPHILS # (AUTO) 5.3 X10'3 (1.8-7.7); NEUTROPHILS % (AUTO) 53.1 % (42-75); PLATELET COUNT 342 X10'3 (140-440); RED BLOOD COUNT 4.19 X10'6 (4.70-6.10); RED CELL DISTRIBUTION WIDTH 13.9 % (11.5-14.5); WHITE BLOOD COUNT 9.9 X10'3 (4.5-11.0)
[2023-05-26 07:28] LABS: ALANINE AMINOTRANSFERASE 31 U/L (12-78); ALBUMIN 2.8 G/DL (3.4-5.0); ALBUMIN/GLOBULIN RATIO 0.7 (1.1-1.5); ALKALINE PHOSPHATASE 98 IU/L (46-116); ANION GAP 8 (8-16); ASPARTATE AMINO TRANSFERASE 20 U/L (10-37); BILIRUBIN,TOTAL 0.4 MG/DL (0.1-1.0); BLOOD UREA NITROGEN 17 MG/DL (7-18); C-REACTIVE PROTEIN 3.37 MG/DL (0.0-0.5); CALCIUM 9.1 MG/DL (8.5-10.1); CHLORIDE 104 MMOL/L (99-107); CREATININE 0.85 MG/DL (0.60-1.10); GLUCOSE 125 MG/DL (70-104); POTASSIUM 3.6 MMOL/L (3.5-5.1); SODIUM 140 MMOL/L (135-145); TOTAL CARBON DIOXIDE 27.6 MMOL/L (24-32); TOTAL PROTEIN 6.8 G/DL (6.4-8.2); eCRCL 96 ML/MIN; eGFR > 90 ML/MIN
[2023-05-26] MEDS: HYDROchlorothiazide 12.5mg capsule PO SCH (07:54)
[2023-05-26] MEDS: losartan 50mg tablet PO SCH (07:54)
[2023-05-26 08:10] VITALS: RESP 12; O2SAT 97
[2023-05-26 12:00] VITALS: BP 143/74; PULSE 85; RESP 18; TEMP 98.1; O2SAT 96
[2023-05-26 18:00] VITALS: BP 124/73; PULSE 83; RESP 16; TEMP 97.3; O2SAT 97
[2023-05-26 20:00] VITALS: RESP 18; O2SAT 96
[2023-05-26 22:00] VITALS: BP 99/69; PULSE 80; RESP 18; TEMP 98; O2SAT 98
[2023-05-27 06:30] VITALS: BP 120/68; PULSE 71; RESP 14; TEMP 97.5; O2SAT 98
[2023-05-27 08:10] VITALS: RESP 14; O2SAT 98
[2023-05-27 10:00] VITALS: BP 115/75; PULSE 84; RESP 16; TEMP 97.8; O2SAT 97
[2023-05-27 10:06] LABS: BASOPHILS # (AUTO) 0.1 X10'3 (0-0.2); BASOPHILS % (AUTO) 1.2 % (0-1); EOSINOPHILS # (AUTO) 1.1 X10'3 (0-0.9); EOSINOPHILS % (AUTO) 13.6 % (0-6); HEMATOCRIT 33.6 % (42.0-52.0); HEMOGLOBIN 11.3 g/dl (14.0-17.9); LYMPHOCYTES % (AUTO) 13.1 % (21-51); MEAN CORPUSCULAR HEMOGLOBIN 27.5 PG (27.0-31.0); MEAN CORPUSCULAR HGB CONC 33.5 g/dL (33.0-36.5); MEAN CORPUSCULAR VOLUME 81.9 FL (78-98); MEAN PLATELET VOLUME 7.4 FL (7.4-10.4); MONOCYTES # (AUTO) 0.6 X10'3 (0-0.9); MONOCYTES % (AUTO) 7.9 % (2-12); NEUTROPHILS % (AUTO) 64.2 % (42-75); PLATELET COUNT 283 X10'3 (140-440); RED CELL DISTRIBUTION WIDTH 13.9 % (11.5-14.5); WHITE BLOOD COUNT 7.8 X10'3 (4.5-11.0)
[2023-05-27 12:21] LABS: ALANINE AMINOTRANSFERASE 32 U/L (12-78); ALBUMIN 2.5 G/DL (3.4-5.0); ALBUMIN/GLOBULIN RATIO 0.6 (1.1-1.5); ALKALINE PHOSPHATASE 99 IU/L (46-116); ANION GAP 11 (8-16); ASPARTATE AMINO TRANSFERASE 23 U/L (10-37); BILIRUBIN,TOTAL 0.3 MG/DL (0.1-1.0); BLOOD UREA NITROGEN 15 MG/DL (7-18); BUN/CREATININE RATIO 16.1 (10.0-20.0); CALCIUM 8.5 MG/DL (8.5-10.1); CHLORIDE 103 MMOL/L (99-107); CREATININE 0.93 MG/DL (0.60-1.10); GLUCOSE 213 MG/DL (70-104); POTASSIUM 3.6 MMOL/L (3.5-5.1); SODIUM 139 MMOL/L (135-145); TOTAL CARBON DIOXIDE 24.9 MMOL/L (24-32); TOTAL PROTEIN 6.7 G/DL (6.4-8.2); eCRCL 88 ML/MIN; eGFR 84 ML/MIN
[2023-05-27 18:00] VITALS: BP 116/62; PULSE 80; RESP 16; TEMP 98; O2SAT 98
[2023-05-27 20:00] VITALS: RESP 16; O2SAT 98
[2023-05-27 22:00] VITALS: BP 104/64; PULSE 85; RESP 16; TEMP 97.9; O2SAT 98
[2023-05-28 00:35] VITALS: BP 112/72; PULSE 72
[2023-05-28 06:00] VITALS: BP_SYST 105; BP_SYST 121; BP_DIAS 53; BP_DIAS 69; PULSE 66; RESP 18; TEMP 98.3; O2SAT 94; O2SAT 97
[2023-05-28 08:30] VITALS: RESP 18; O2SAT 97
[2023-05-28 10:00] VITALS: BP 116/66; PULSE 85; RESP 16; TEMP 97.7; O2SAT 100
[2023-05-28 18:00] VITALS: BP 105/68; PULSE 74; RESP 16; TEMP 98.1; O2SAT 97
[2023-05-28 22:00] VITALS: BP 114/87; PULSE 88; RESP 14; TEMP 97.5; O2SAT 100
[2023-05-29 06:00] VITALS: BP 126/72; PULSE 78; RESP 15; TEMP 98.2; O2SAT 100
[2023-05-29 09:14] VITALS: BP_SYST 122; PULSE 85
[2023-05-29 09:30] LABS: BASOPHILS # (AUTO) 0.1 X10'3 (0-0.2); BASOPHILS % (AUTO) 0.7 % (0-1); EOSINOPHILS % (AUTO) 12.5 % (0-6); HEMATOCRIT 32.6 % (42.0-52.0); LYMPHOCYTES # (AUTO) 1.3 X10'3 (1.1-4.8); LYMPHOCYTES % (AUTO) 16.2 % (21-51); MEAN CORPUSCULAR HEMOGLOBIN 27.7 PG (27.0-31.0); MEAN CORPUSCULAR HGB CONC 33.6 g/dL (33.0-36.5); MEAN CORPUSCULAR VOLUME 82.4 FL (78-98); MEAN PLATELET VOLUME 7.8 FL (7.4-10.4); MONOCYTES # (AUTO) 0.7 X10'3 (0-0.9); MONOCYTES % (AUTO) 8.7 % (2-12); NEUTROPHILS % (AUTO) 61.9 % (42-75); PLATELET COUNT 265 X10'3 (140-440); RED BLOOD COUNT 3.96 X10'6 (4.70-6.10); RED CELL DISTRIBUTION WIDTH 14.3 % (11.5-14.5)
[2023-05-29 09:56] LABS: ALANINE AMINOTRANSFERASE 21 U/L (12-78); ALBUMIN 2.6 G/DL (3.4-5.0); ALBUMIN/GLOBULIN RATIO 0.7 (1.1-1.5); ALKALINE PHOSPHATASE 85 IU/L (46-116); ANION GAP 8 (8-16); ASPARTATE AMINO TRANSFERASE 18 U/L (10-37); BILIRUBIN,TOTAL 0.3 MG/DL (0.1-1.0); BLOOD UREA NITROGEN 14 MG/DL (7-18); BUN/CREATININE RATIO 15.7 (10.0-20.0); CALCIUM 8.6 MG/DL (8.5-10.1); CHLORIDE 104 MMOL/L (99-107); CREATININE 0.89 MG/DL (0.60-1.10); GLUCOSE 211 MG/DL (70-104); POTASSIUM 3.6 MMOL/L (3.5-5.1); SODIUM 140 MMOL/L (135-145); TOTAL PROTEIN 6.6 G/DL (6.4-8.2); eCRCL 92 ML/MIN; eGFR 88 ML/MIN
[2023-05-29] MEDS ORDERED: OXYC-150 PO (11:34)
== END 2023-05-29 11:30 | disposition home or self-care (01) | DRG 856 ==
LOC: ER 18:03 → ED HOLD 22:36 → EDBEDREQ 05-19 19:33 → ORTHO 4S 05-20 00:30
PROVIDERS: ADMIT Family Medicine; ATTEND Internal Medicine
PROC: 0SUC09Z Supplement Right Knee Joint with Liner, Open Approach (ICD-10-PCS; 2023-05-19)
PROC: 0SBC0ZZ Excision of Right Knee Joint, Open Approach (ICD-10-PCS; 2023-05-19)
PROC: 3E0T3BZ Introduction of Anesthetic Agent into Peripheral Nerves and Plexi, Percutaneous Approach (ICD-10-PCS; 2023-05-19)
PROC: 3E0T33Z Introduction of Anti-inflammatory into Peripheral Nerves and Plexi, Percutaneous Approach (ICD-10-PCS; 2023-05-19)
PROC: 0SPC09Z Removal of Liner from Right Knee Joint, Open Approach (ICD-10-PCS; principal; 2023-05-19 21:55)
DX: T81.40XA Infection following a procedure, unspecified, initial encounter (principal); A41.9 Sepsis, unspecified organism; R65.20 Severe sepsis without septic shock; E11.9 Type 2 diabetes mellitus without complications; I10 Essential (primary) hypertension; I25.10 Atherosclerotic heart disease of native coronary artery without angina pectoris; Z95.1 Presence of aortocoronary bypass graft; Z96.653 Presence of artificial knee joint, bilateral
CPT/HCPCS: 36569; 99285; Z7506; Z7508; 36415; 71045; 73564; 76942; 80053; 80061; 80202; 81003; 82948; 83036; 83605; 84145; 85025; 85610; 85651; 85730; 86140; 86885; 86900; 86901; 87040; 87070; 87075; 87077; 87081; 87186; 93005; 97110; 97116; 97161; 97530; A4215; A4615; A6258; A6454; A7000; A9272; C1751; C1776; G0378; J0690; J0696; J1100; J1170; J1644; J1815; J1885; J2175; J2250; J2405; J2704; J2795; J3010; J3370; J3490; J7030; J7050; J7120; Q0163